=== PATIENT | female | born 1955 | race Caucasian/White ===

== ENCOUNTER → 2017-04-01 | Outpatient (CLI) | payer BC ==
[2017-04-01 11:36] LABS: MEAN PLATELET VOLUME 11.2 FL (7.4-10.4); RED BLOOD COUNT 4.01 10^6/uL (4.35-5.85); RED CELL DISTRIBUTION WIDTH 14.1 % (10.0-14.5); WHITE BLOOD COUNT 8.9 10^3/uL (4.3-11.0)
[2017-04-01 12:02] LABS: ALBUMIN 4.3 GM/DL (3.2-4.5); BILIRUBIN,TOTAL 0.4 MG/DL (0.1-1.0); CALCIUM 10.1 MG/DL (8.5-10.1); CREATININE SERUM 1.07 MG/DL (0.60-1.30); POTASSIUM 4.3 MMOL/L (3.6-5.0); TOTAL PROTEIN 6.8 GM/DL (6.4-8.2)
[2017-04-01 12:25] LABS: THYROID STIMULATING HORMONE 0.51 UIU/ML (0.35-4.94)
--- NOTE | 2017-04-01 16:06 | Diagnostic Imaging Report ---
Two views of the left hip. INDICATION: Left hip pain. FINDINGS: There is no fracture, dislocation or radiopaque foreign body. Mild degenerative subchondral sclerosis is seen in the left hip joint with no joint space loss or other arthritic findings. IMPRESSION: No acute process. Dictated by: Dictated on workstation # [id number]
== END ==
LOC: RAD 10:36
PROVIDERS: ATTEND Nurse Practitioner Family
DX: M25.552 Pain in left hip (principal)
CPT/HCPCS: 36415; 73502; 80053; 80061; 84439; 84443; 85027

== ENCOUNTER 2018-11-05 11:15 | Outpatient (CLI) | payer BC ==
[~2018-11-05] VITALS: Ht 166.4 cm; Wt 111.1 kg
[~2018-11-05 11:15] MED LIST: ACET-2469 PO; ASPI-586 PO; CALC-823 PO; CHOL20003 PO; ESOM20CA PO; GLUC-144 PO; LEVO88TA54 PO; LISI40TA PO; MELO15TA39 PO; MULT1CAP27 PO; PRAV40TA2 PO; PROP20TA5 PO
== END 2018-11-05 11:47 | disposition home or self-care (01) ==
LOC: PREOP 11:15
PROVIDERS: ATTEND Internal Medicine
DX: Z01.818 Encounter for other preprocedural examination (principal)

== ENCOUNTER 2018-11-12 06:52 | Day surgery (SDC) | payer MEDICARE, OTHER ==
--- NOTE | 2018-11-03 17:43 | HISTORY AND PHYSICAL ---
DATE OF SERVICE: ESOPHAGOGASTRODUODENOSCOPY HISTORY AND PHYSICAL HISTORY OF PRESENT ILLNESS: The patient is a 63-year-old white female referred by Dr. Quispe for EGD evaluation. She has a past history of erosive esophagitis, and in spite b.i.d. proton pump inhibitor therapy has had increased antacid usage several times per day for burning epigastric discomfort. She admits to at least a 10-pound weight gain over the last year. Denies dysphagia, melena, bright red blood per rectum or bowel habit change. She has some occasional odynophagia. PAST MEDICAL HISTORY: Significant for longstanding hypertension, mixed hyperlipidemia, hypothyroidism, fibromyalgia. FAMILY HISTORY: She is not aware of any family history for GI tract malignancy. MEDICATIONS ON ADMISSION: Include L-thyroxine 88 mcg daily, Nexium 20 mg b.i.d., calcium with D 600 mg/400 units daily, Osteo Bi-Flex 1 daily, multiple vitamin daily, vitamin D3 1000 units daily, Tylenol PM one at bedtime, pravastatin 40 mg daily, propranolol 20 mg daily, meloxicam 7.5 mg daily and lisinopril 40 mg daily. SOCIAL HISTORY: The patient is , retired. One living child with no past smoking or alcohol intake history. PHYSICAL EXAMINATION: GENERAL: Reveals a pleasant white female appears to be in no acute distress. She is roughly 5 feet 6 inches tall and weighs 246.8 pounds. VITAL SIGNS: Blood pressure 146/94, heart rate 70 and regular. HEENT: Unremarkable. She is a Mallampati class 3 oropharyngeal configuration. No erythema or exudate or ulceration noted. NECK: Revealed no JVD, adenopathy or bruits. CHEST: Clear to auscultation. CARDIOVASCULAR: Reveals a regular rate and rhythm without murmur, S3 or S4. ABDOMEN: Soft, supple without mass, organomegaly or tenderness. EXTREMITIES: Reveal no cyanosis or clubbing with trace bilateral edema. ASSESSMENT: The patient was set up for diagnostic EGD due to reflux refractory to proton pump inhibitor therapy. She was advised to abstain from aspirin and was set up for EGD evaluation on 11/12/2018. Instructions were given and questions were answered. I thank you for the referral of this pleasant lady. Job ID: [id number] DocumentID: [id number] Dictated Date: 11/02/2018 16:36:52 Ged Tutor Date: 11/02/2018 17:02:27 Dictated By: VICKY NICOLAS MD
[~2018-11-12] VITALS: Ht 166.4 cm; Wt 111.1 kg
--- OUTSIDE RECORDS SUMMARY | 2018-11-12 06:56 | XMS REPORT | Clinical Summary ---
Author Author [facility] Organization [facility] Address Unknown Phone Unavailable Care Team Providers Care Tile Classifier Name Role Phone Unknown, Unknown Md PCP Unavailable Chetan Dumas MD Unavailable Source Comments Some departments are not documenting in the electronic medical record. If you do not see the information that you expected, contact Release of Information in the Health Information Management department at [phone] for further assistance in locating additional records.[facility] Allergies Not on File Medications End Date Status Medication Sig Dispensed Refills Start Date Active gabapentin (NEURONTIN) 300 mg. 0 300 mg capsule 6 Active levothyroxine (SYNTHROID) 88 mcg. 0 88 mcg tablet 6 Active lisinopril (PRINIVIL, 40 mg. 0 ZESTRIL) 40 mg tablet 6 Active meloxicam (MOBIC) 15 mg 15 mg. 0 tablet 6 Active pravastatin (PRAVACHOL) 40 mg. 0 40 mg tablet 6 Active aspirin 81 mg chewable Take 81 mg by 0 tablet mouth daily. Active MULTIVITAMINS WITH Take by 0 FLUORIDE (MULTI-VITAMIN mouth. PO) Active Ibuprofen-Diphenhydramine Take by 0 200-38 mg tab mouth. Active GLUCOSAMINE/D3/BOSWELLIA Take by 0 JOHN (OSTEO BI-FLEX mouth. (5-LOXIN) PO) Active Problems Not on file Social History Date Tobacco Use Types Packs/Day Years Used Quit: 11/14/2004 Former Smoker Alcohol Use Drinks/Week oz/Week Comments No Sex Assigned at Date Recorded Not on file Industry Job Start Date Occupation Not on file Not on file Not on file Travel End Travel History Travel Start No recent travel history available. Last Filed Vital Signs Time Taken Vital Sign Reading 11/15/2015 2:10 PM [employer] Blood Pressure 156/89 11/15/2015 2:10 PM [employer] Pulse 105 - Temperature - - Respiratory Rate - - Oxygen Saturation - - Inhaled Oxygen - Concentration 11/15/2015 2:10 PM [employer]ER Weight 105.7 kg (233 lb) 11/15/2015 2:10 PM [employer] OFFICER Height 172.7 cm (5' 8") 11/15/2015 2:10 PM [employer] OFFICER Body Mass Index 35.43 Plan of Treatment Health Maintenance Due Date Last Done Comments HEPATITIS C SCREENING 1953 PHYSICAL (COMPREHENSIVE) 1960 EXAM HIV SCREENING 1968 DTAP/TDAP VACCINES (1 - 1971 Tdap) BREAST CANCER SCREENING 1993 COLORECTAL CANCER 2003 SCREENING SHINGLES RECOMBINANT 2003 VACCINE (1 of 2) OSTEOPOROSIS 2018 SCREENING/MONITORING PNEUMONIA (PCV13/PPSV23) 2018 VACCINES (1 of 2 - PCV13) INFLUENZA VACCINE 04/07/2019 Results Not on filefrom Last 3 Months Insurance Payer Benefit Subscriber ID Type Phone Address Plan / Group [facility] xxxxxxxxxxxx PPO [facility] BL[facility] Advance Directives Patient has advance care planning documents on file. For more information, please contact: [facility] [address] [place] [address]
[2018-11-12] MEDS ORDERED: D5 LR IV SOLUTION 1,000 ML IV ONE (06:57)
--- OUTSIDE RECORDS SUMMARY | 2018-11-12 06:57 | XMS REPORT ---
Author Author Oly Alcocer [facility] Address [address] [place] [id number] Care Team Providers Care Human Resources Benefits Administrator Name Role Phone Oly Alcocer PCP Unavailable Allergies and Adverse Reactions Name Reaction Notes NO KNOWN DRUG ALLERGIES Plan of Treatment Planned Activity Comments Planned Date Planned Time Plan/Goal MAMMOGRAM SCREENING 09/24/2015 12:00 AM DXA BONE DENSITY AXIAL 09/24/2015 12:00 AM Medications Active Name Start Date Estimated Completion Date SIG Comments multivitamin Oral Tablet take 1 tablet by oral route once daily with food Baby Aspirin 81 mg oral tablet,chewable chew 1 tablet (81 mg) by oral route once daily Calcium 500 + D 500 mg(1,250mg) -200 unit oral tablet take 1 tablet by oral route daily advil PM Osteo biflex gabapentin 300 mg oral capsule 03/05/2015 take 1 capsule (300 mg) by oral route 3 times per day gabapentin 300 mg oral capsule 08/24/2015 02/20/2016 TAKE ONE CAPSULE BY MOUTH THREE TIMES DAILY for 90 days levothyroxine 88 mcg oral tablet 08/24/2015 02/20/2016 TAKE ONE TABLET BY MOUTH EVERY DAY lisinopril 40 mg oral tablet 08/24/2015 02/20/2016 TAKE ONE TABLET BY MOUTH EVERY DAY meloxicam 15 mg oral tablet 08/24/2015 02/20/2016 TAKE ONE-HALF TO ONE TABLET BY MOUTH EVERY DAY Nexium 40 mg oral capsule,delayed release(DR/EC) 08/24/2015 take 1 capsule (40 mg) by oral route once daily pravastatin 40 mg oral tablet 08/24/2015 02/20/2016 TAKE ONE TABLET BY MOUTH EVERY DAY Name Start Date Expiration Date SIG Comments Nexium 40 mg oral capsule,delayed release(DR/EC) 08/24/2009 08/19/2010 take 1 capsule by oral route daily for 30 days phentermine 37.5 mg oral capsule 11/29/2009 12/29/2009 take 1 capsule (37.5 mg ) by oral route once daily before breakfast for 30 days Bactrim DS 800-160 mg oral tablet 12/18/2009 12/25/2009 take 1 tablet by oral route 2 times per day for 7 days Zithromax Z-Michael 250 mg oral tablet 10/28/2010 11/02/2010 Take 2 tablets the first day (500 mg) followed by 1 tablet (250 mg) days 2-5. for 5 days Bactrim DS 800-160 mg oral tablet 03/27/2014 04/06/2014 take 1 tablet by oral route every 12 hours for 10 days Bactroban 2 % topical ointment 03/27/2014 04/06/2014 apply a small amount to the affected area by topical route 2 times per day for 10 days Bactrim DS 800-160 mg oral tablet 01/12/2015 01/22/2015 take 1 tablet by oral route every 12 hours for 10 days Bactroban 2 % topical ointment 01/12/2015 01/22/2015 apply a small amount to the affected area by topical route 2 times per day for 10 days Discontinued Name Start Date Discontinued Date SIG Comments Vitamin D2 400 unit oral capsule 08/03/2012 take 2 capsules by oral route daily lisinopril-hydrochlorothiazide 10-12.5 mg oral tablet 08/24/2009 take 1 tablet by oral route once daily Prilosec OTC 20 mg oral tablet,delayed release (DR/EC) 08/24/2009 take 1 tablet by oral route daily Mobic 15 mg oral tablet 07/05/2010 11/12/2010 take 1/2-1 tablet by oral route QD levothyroxine 88 mcg oral tablet 07/08/2010 01/09/2011 take 1 tablet (88 mcg) by oral route once daily Celebrex 200 mg oral capsule 11/12/2010 01/09/2011 take 1 capsule (200 mg) by oral route once daily Dexilant 60 mg oral capsule,biphase delayed releas 11/12/2010 03/16/2012 take 1 capsule (60 mg) by oral route once daily prednisone 20 mg oral tablet 12/11/2010 01/09/2011 take 3 tabs x 3 days, 2 tabs x 3 days, 1 tab x 3 days then 1/2 tab for 4 days. omeprazole 20 mg oral capsule,delayed release(DR/EC) 10/13/2013 take 1 capsule (20 mg) by oral route 2 times per day estradiol 1 mg oral tablet 07/17/2011 01/10/2014 take 1 tablet (1 mg) by oral route once daily promethazine-codeine 6.25-10 mg/5 mL oral syrup 08/09/2012 09/30/2012 take 5 milliliters by oral route every 4-6 hours as needed, not to exceed 30 mL in 24 hours albuterol sulfate 90 mcg/actuation inhalation HFA aerosol inhaler 08/09/2012 inhale 1 - 2 puffs by inhalation route every 6 hours as needed Cymbalta 60 mg oral capsule,delayed release(DR/EC) 06/07/2013 07/18/2013 take 1 capsule (60 mg) by oral route once daily for 30 days per insurance needs to try other medication first Nexium 40 mg oral capsule,delayed release(DR/EC) 09/13/2013 09/14/2013 take 1 capsule by oral route daily Protonix 40 mg oral tablet,delayed release (DR/EC) 09/14/2013 10/13/2013 take 1 tablet (40 mg) by oral route once daily for 30 days Nexium 40 mg oral capsule,delayed release(DR/EC) 10/13/2013 01/10/2014 take 1 capsule (40 mg) by oral route once daily for 30 days Prevacid 30 mg oral capsule,delayed release(DR/EC) 11/23/2013 01/10/2014 take 1 capsule (30 mg) by oral route once daily before a meal for 30 days Nexium 40 mg oral capsule,delayed release(DR/EC) 01/10/2014 02/27/2014 take 1 capsule (40 mg) by oral route once daily Dexilant 60 mg oral capsule,biphase delayed releas 02/27/2014 05/26/2014 take 1 capsule (60 mg) by oral route once daily rabeprazole 20 mg oral tablet,delayed release (DR/EC) 03/24/2014 take 1 tablet (20 mg) by oral route once daily swallowing whole. Do not crush, chew and /or divide. per patient she is back on nexium gabapentin 300 mg oral capsule 08/17/2014 08/17/2014 TAKE ONE CAPSULE BY MOUTH THREE TIMES DAILY Problem List Description Status Onset Overactive bladder Active 07/07/2010 Vital Signs Date Time BP-Sys(mm[Hg] BP-Bhavani(mm[Hg]) HR(bpm) RR(rpm) Temp WT HT HC BMI BSA BMI Percentile O2 Sat(%) 09/24/2015 8:22:00 AM 137 mmHg 83 mmHg 80 bpm 20 rpm 97.8 F 238.4 lbs 96 % 08/24/2015 1:14:00 PM 115 mmHg 72 mmHg 75 bpm 20 rpm 98.2 F 237.6 lbs 95 % 03/05/2015 9:05:00 AM 110 mmHg 80 mmHg 72 bpm 20 rpm 97.8 F 234 lbs 68 in 35.5792 kg/m 2.26 m2 96 % 01/12/2015 1:32:00 PM 110 mmHg 78 mmHg 101 bpm 18 rpm 97.9 F 234 lbs 68 in 35.58 kg/m2 2.2566 m 97 % 10/11/2014 1:28:00 PM 110 mmHg 68 mmHg 98 bpm 18 rpm 97.2 F 232.2 lbs 68 in 35.3055 kg/m 2.25 m2 97 % 08/17/2014 2:34:00 PM 144 mmHg 72 mmHg 78 bpm 16 rpm 98.5 F 238 lbs 68 in 36.19 kg/m2 2.2758 m 95 % 05/26/2014 1:34:00 PM 100 mmHg 64 mmHg 91 bpm 20 rpm 97.2 F 236 lbs 68 in 35.8833 kg/m 2.27 m2 94 % 03/27/2014 2:13:00 PM 102 mmHg 64 mmHg 91 bpm 20 rpm 97.2 F 233.8 lbs 68 in 35.55 kg/m2 2.2557 m 96 % 02/27/2014 8:21:00 AM 118 mmHg 76 mmHg 76 bpm 20 rpm 97 F 232 lbs 68 in 35.2751 kg/m 2.25 m2 96 % 01/10/2014 1:54:00 PM 100 mmHg 62 mmHg 75 bpm 20 rpm 97.4 F 232 lbs 68 in 35.28 kg/m2 2.25 m2 96 % 09/13/2013 9:11:00 AM 136 mmHg 72 mmHg 81 bpm 18 rpm 96.2 F 234.25 lbs 68 in 35.6172 kg/m 2.2578 m 98 % 08/11/2013 3:41:00 PM 110 mmHg 86 mmHg 85 bpm 16 rpm 96 F 230 lbs 96 % 05/12/2013 3:38:00 PM 105 mmHg 60 mmHg 82 bpm 20 rpm 97.4 F 224.2 lbs 68 in 34.0891 kg/m 2.2089 m 96 % 09/30/2012 8:32:00 AM 108 mmHg 62 mmHg 100 bpm 20 rpm 95.7 F 222.2 lbs 68 in 33.79 kg/m2 2.20 m2 97 % 08/09/2012 10:35:00 AM 102 mmHg 68 mmHg 88 bpm 20 rpm 222.2 lbs 68 in 33.785 kg/m 2.199 m 99 % 08/03/2012 2:47:00 PM 109 mmHg 72 mmHg 88 bpm 18 rpm 226.4 lbs 68 in 34.42 kg/m2 2.22 m2 98 % 03/16/2012 10:01:00 AM 110 mmHg 66 mmHg 77 bpm 16 rpm 96.9 F 218.125 lbs 97 % 07/17/2011 3:40:00 PM 110 mmHg 68 mmHg 95 bpm 16 rpm 97.5 F 228.5 lbs 68 in 34.74 kg/m2 2.23 m2 96 % 05/13/2011 10:51:00 AM 114 mmHg 68 mmHg 88 bpm 16 rpm 97.4 F 227.375 lbs 100 % 04/22/2011 9:17:00 AM 106 mmHg 70 mmHg 92 bpm 16 rpm 96.3 F 224.125 lbs 68 in 34.08 kg/m2 2.21 m2 97 % 12/11/2010 1:06:00 PM 124 mmHg 86 mmHg 87 bpm 16 rpm 97.6 F 219 lbs 97 % 11/12/2010 3:55:00 PM 120 mmHg 80 mmHg 77 bpm 16 rpm 98.2 F 220 lbs 98 % 10/28/2010 1:07:00 PM 94 bpm 16 rpm 98.9 F 216 lbs 95 % 07/05/2010 8:54:00 AM 125 mmHg 75 mmHg 86 bpm 96.4 F 215.125 lbs 01/01/2010 11:08:00 AM 113 mmHg 75 mmHg 91 bpm 97.9 F 205 lbs 12/26/2009 8:29:00 AM 100 mmHg 60 mmHg 100 bpm 18 rpm 95.8 F 12/18/2009 9:27:00 AM 108 mmHg 72 mmHg 80 bpm 16 rpm 96.8 F 203.5 lbs 11/29/2009 8:35:00 AM 100 mmHg 60 mmHg 80 bpm 16 rpm 96.3 F 206.25 lbs 11/01/2009 8:41:00 AM 122 mmHg 80 mmHg 90 bpm 16 rpm 97.3 F 210 lbs 10/01/2009 3:35:00 PM 144 mmHg 72 mmHg 80 bpm 16 rpm 97.4 F 219.375 lbs 68 in 33.3555 kg/m 2.185 m 08/24/2009 8:09:00 AM 138 mmHg 80 mmHg 80 bpm 20 rpm 96.2 F 220.25 lbs 68 in 33.49 kg/m2 2.19 m2 08/01/2009 4:28:00 PM 136 mmHg 90 mmHg 60 bpm 18 rpm 219 lbs 07/05/2009 4:28:00 PM 140 mmHg 80 mmHg 80 bpm 18 rpm 97.4 F 217 lbs 68 in 32.99 kg/m2 2.17 m2 Social History Name Description Comments Grown Children x1 Lives with spouse in a house College graduate bachelors degree BS [employer] Former smoker Former quit 2005 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 Alcohol Use - Occasional Minimal Amount of Exercise (Once weekly or less) History of Procedures Date Ordered Description Order Status 05/13/2011 12:00 AM X-RAY EXAM OF ELBOW Reviewed 05/13/2011 12:00 AM X-RAY EXAM OF FOREARM Reviewed 05/13/2011 12:00 AM Arm Sling Reviewed 08/24/2015 12:00 AM COMPREHEN METABOLIC PANEL Returned 08/24/2015 12:00 AM LIPID PANEL Returned 08/24/2015 12:00 AM ASSAY THYROID STIM HORMONE Returned 08/24/2015 12:00 AM VIT D 1 25-DIHYDROXY Returned 08/24/2015 12:00 AM COMPLETE CBC W/AUTO DIFF WBC Returned 08/24/2015 12:00 AM MAMMOGRAM SCREENING Reviewed 03/16/2012 12:00 AM COMPREHEN METABOLIC PANEL Returned 03/16/2012 12:00 AM LIPID PANEL Returned 03/16/2012 12:00 AM ASSAY THYROID STIM HORMONE Returned 03/16/2012 12:00 AM COMPLETE CBC W/AUTO DIFF WBC Returned 08/09/2012 12:00 AM THER/PROPH/DIAG INJ SC/IM Reviewed 08/09/2012 12:00 AM Decadron, Per 1 Mg [facility]# [address]-04 Reviewed 08/09/2012 12:00 AM Depo-Medrol, Per 80 Mg [facility]#5812-0696-58 Reviewed 09/30/2012 12:00 AM COMPLETE CBC W/AUTO DIFF WBC Returned 09/30/2012 12:00 AM COMPREHEN METABOLIC PANEL Returned 09/30/2012 12:00 AM LIPID PANEL Returned 09/30/2012 12:00 AM ASSAY THYROID STIM HORMONE Returned 09/30/2012 12:00 AM VITAMIN D 25 HYDROXY Returned 09/30/2012 12:00 AM VITAMIN B-12 Returned 12/18/2009 12:00 AM URINALYSIS NONAUTO W/SCOPE Reviewed 12/24/2009 12:00 AM URINALYSIS AUTO W/SCOPE Reviewed 12/24/2009 12:00 AM HEPATIC FUNCTION PANEL Reviewed 01/08/2010 12:00 AM LIPID PANEL Reviewed 08/11/2013 12:00 AM COMPREHEN METABOLIC PANEL Returned 08/11/2013 12:00 AM LIPID PANEL Returned 08/11/2013 12:00 AM ASSAY THYROID STIM HORMONE Returned 08/11/2013 12:00 AM COMPLETE CBC W/AUTO DIFF WBC Returned 08/29/2013 12:00 AM MAMMOGRAM SCREENING Returned 07/05/2010 12:00 AM COMPREHEN METABOLIC PANEL Reviewed 07/05/2010 12:00 AM LIPID PANEL Reviewed 07/05/2010 12:00 AM ASSAY THYROID STIM HORMONE Reviewed 07/05/2010 12:00 AM VIT D 1 25-DIHYDROXY Reviewed 02/27/2014 12:00 AM COMPREHEN METABOLIC PANEL Returned 02/27/2014 12:00 AM LIPID PANEL Returned 02/27/2014 12:00 AM ASSAY THYROID STIM HORMONE Returned 02/27/2014 12:00 AM COMPLETE CBC W/AUTO DIFF WBC Returned 03/27/2014 12:00 AM CULTURE OTHR SPECIMN AEROBIC Returned 03/27/2014 12:00 AM DRAINAGE OF SKIN ABSCESS Reviewed 05/26/2014 12:00 AM Gastroenterology Consult Reviewed 11/12/2010 12:00 AM COMPREHEN METABOLIC PANEL Reviewed 11/12/2010 12:00 AM LIPID PANEL Reviewed 11/12/2010 12:00 AM ASSAY THYROID STIM HORMONE Reviewed 11/12/2010 12:00 AM VIT D 1 25-DIHYDROXY Reviewed 08/17/2014 12:00 AM COMPREHEN METABOLIC PANEL Returned 08/17/2014 12:00 AM LIPID PANEL Returned 08/17/2014 12:00 AM ASSAY THYROID STIM HORMONE Returned 08/17/2014 12:00 AM COMPLETE CBC W/AUTO DIFF WBC Returned 08/17/2014 12:00 AM X-RAY EXAM OF FOOT Returned 10/01/2009 12:00 AM ASSAY THYROID STIM HORMONE Reviewed 10/11/2014 12:00 AM MAMMOGRAM SCREENING Returned 01/15/2011 12:00 AM MUSCLE TEST ONE LIMB Reviewed 01/15/2011 12:00 AM NERVE CONDUCTION, MOTOR Reviewed 01/15/2011 12:00 AM NERVE CONDUCTION, SENSORY Reviewed 01/12/2015 12:00 AM CULTURE OTHR SPECIMN AEROBIC Returned 01/12/2015 12:00 AM DRAINAGE OF SKIN ABSCESS Reviewed 03/05/2015 12:00 AM COMPREHEN METABOLIC PANEL Returned 03/05/2015 12:00 AM LIPID PANEL Returned 03/05/2015 12:00 AM ASSAY THYROID STIM HORMONE Returned 03/05/2015 12:00 AM COMPLETE CBC W/AUTO DIFF WBC Returned 03/05/2015 12:00 AM X-RAY EXAM OF HIP Returned 04/22/2011 12:00 AM COMPREHEN METABOLIC PANEL Reviewed 04/22/2011 12:00 AM LIPID PANEL Reviewed 04/22/2011 12:00 AM ASSAY THYROID STIM HORMONE Reviewed 04/22/2011 12:00 AM COMPLETE CBC W/AUTO DIFF WBC Reviewed 04/22/2011 12:00 AM VIT D 1 25-DIHYDROXY Reviewed 04/22/2011 12:00 AM IMMUNIZATION ADMIN Reviewed 04/22/2011 12:00 AM TD VACCINE NO PRSRV 7/> IM Reviewed Results Summary Data and Description Results 12/18/2009 9:29 AM Colonoscopy-Women and Men over 50 Normal Mammogram -Women over 40 Normal Pap Smear Declined 12/18/2009 10:01 AM COLOR MARIANA APPEARANCE CLEAR SPEC GRAV >=1.030 pH 5.5 PROTEIN 100 GLUCOSE NEGATIVE KETONE 15 BILIRUBIN SMALL BLOOD NEGATIVE NITRITE NEGATIVE LEUK SCREEN NEGATIVE CASTS/LPF 2++ HYALINE CRYSTALS 1+ CALCIUM OX MUCOUS THRDS 1+ BACTERIA NEGATIVE EPITH CELLS 1+ SQUAMOUS TRICHOMONAS NEGATIVE YEAST NEGATIVE 12/24/2009 1:47 PM COLOR YELLOW APPEARANCE CLEAR SPEC GRAV <=1.005 pH 6.0 PROTEIN NEGATIVE GLUCOSE NEGATIVE KETONE NEGATIVE BILIRUBIN NEGATIVE BLOOD NEGATIVE NITRITE NEGATIVE LEUK SCREEN NEGATIVE CASTS/LPF NEGATIVE CRYSTALS NEGATIVE MUCOUS THRDS NEGATIVE BACTERIA NEGATIVE EPITH CELLS NEGATIVE TRICHOMONAS NEGATIVE YEAST NEGATIVE SGOT/AST 15.0 IU/LSGPT/ALT 14.0 IU/LALK PHOS 72.0 IU/LTOTAL PROTEIN 7.20 g/dLALBUMIN 4.80 g/dLTOTAL BILI 0.40 mg/ dLDIRECT BILI 0.20 mg/dLINDIRECT BILI 0.20 mg/dL 01/09/2010 6:00 AM TRIGLYCERIDES 64.0 mg/dLCHOLESTEROL 198.0 mg/dLHDL 52.0 mg/ dLLDL (CALC) 133.0 mg/dLTSH 0.590 uIU/mL 07/05/2010 10:10 AM TRIGLYCERIDES 73.0 mg/dLCHOLESTEROL 207.0 mg/dLHDL 64.0 mg /dLLDL (CALC) 128.0 mg/dLTSH 0.150 uIU/mLGLUCOSE 99.0 mg/dLSODIUM 142.0 mmol/ LPOTASSIUM 4.30 mmol/LCHLORIDE 109.0 mmol/LCO2 25.0 mmol/LBUN 19.0 mg/ dLCREATININE 0.90 mg/dLSGOT/AST 13.0 IU/LSGPT/ALT 13.0 IU/LALK PHOS 76.0 IU/ LTOTAL PROTEIN 7.0 g/dLALBUMIN 4.30 g/dLTOTAL BILI 0.30 mg/dLCALCIUM 9.60 mg/ dLeGFR >60 mL/min/1.73 m2 11/15/2010 5:35 AM TSH 1.240 uIU/mLTRIGLYCERIDES 80.0 mg/dLCHOLESTEROL 215.0 mg /dLHDL 57.0 mg/dLLDL (CALC) 142.0 mg/dLGLUCOSE 98.0 mg/dLSODIUM 141.0 mmol/ LPOTASSIUM 4.40 mmol/LCHLORIDE 109.0 mmol/LCO2 23.0 mmol/LBUN 23.0 mg/ dLCREATININE 1.0 mg/dLSGOT/AST 15.0 IU/LSGPT/ALT 13.0 IU/LALK PHOS 70.0 IU/ LTOTAL PROTEIN 6.40 g/dLALBUMIN 3.90 g/dLTOTAL BILI 0.30 mg/dLCALCIUM 10.10 mg/ dLeGFR 57 04/22/2011 9:52 AM WBC 5.1 RBC 3.83 HGB 12.10 g/dLHCT 36.0 %MCV 94.0 fLMCH 31.60 pgMCHC 33.60 g/dLRDW CV 13.30 %MPV 11.20 fLPLT 160 %NEUT 62.90 %%LYMP 21.20 %%MONO 11.30 %%EOS 3.60 %%BASO 1.0 %#NEUT 3.18 #LYMP 1.07 #MONO 0.57 #EOS 0.18 #BASO 0.05 GLUCOSE 97.0 mg/dLSODIUM 142.0 mmol/LPOTASSIUM 4.40 mmol/ LCHLORIDE 107.0 mmol/LCO2 25.0 mmol/LBUN 22.0 mg/dLCREATININE 1.10 mg/dLSGOT/ AST 13.0 IU/LSGPT/ALT 12.0 IU/LALK PHOS 77.0 IU/LTOTAL PROTEIN 7.0 g/dLALBUMIN 4.30 g/dLTOTAL BILI 0.30 mg/dLCALCIUM 10.10 mg/dLeGFR 51 TRIGLYCERIDES 96.0 mg/ dLCHOLESTEROL 192.0 mg/dLHDL 60.0 mg/dLLDL (CALC) 113.0 mg/dLTSH 0.720 uIU/mL 04/08/2012 5:20 AM WBC 5.5 RBC 4.06 HGB 12.70 g/dLHCT 37.70 %MCV 93.0 fLMCH 31.30 pgMCHC 33.70 g/dLRDW CV 13.60 %MPV 11.20 fLPLT 172 %NEUT 53.50 %%LYMP 34.90 %%MONO 8.0 %%EOS 3.10 %%BASO 0.50 %#NEUT 2.96 #LYMP 1.93 #MONO 0.44 #EOS 0.17 #BASO 0.03 GLUCOSE 103.0 mg/dLSODIUM 139.0 mmol/LPOTASSIUM 4.20 mmol/ LCHLORIDE 108.0 mmol/LCO2 22.0 mmol/LBUN 26.0 mg/dLCREATININE 1.10 mg/dLSGOT/ AST 15.0 IU/LSGPT/ALT 15.0 IU/LALK PHOS 79.0 IU/LTOTAL PROTEIN 6.30 g/dLALBUMIN 4.10 g/dLTOTAL BILI 0.40 mg/dLCALCIUM 9.90 mg/dLeGFR 51 TRIGLYCERIDES 73.0 mg/ dLCHOLESTEROL 203.0 mg/dLHDL 65.0 mg/dLLDL (CALC) 123.0 mg/dLTSH 0.810 uIU/mL 10/01/2012 5:30 AM WBC 5.5 RBC 3.69 HGB 11.40 g/dLHCT 34.20 %MCV 93.0 fLMCH 30.90 pgMCHC 33.30 g/dLRDW CV 13.40 %MPV 12.10 fLPLT 162 %NEUT 46.70 %%LYMP 40.0 %%MONO 8.90 %%EOS 3.30 %%BASO 1.10 %#NEUT 2.57 #LYMP 2.20 #MONO 0.49 #EOS 0.18 #BASO 0.06 VITAMIN B12 641.0 pg/mLTSH 1.0 uIU/mLTRIGLYCERIDES 93.0 mg/ dLCHOLESTEROL 182.0 mg/dLHDL 55.0 mg/dLLDL (CALC) 108.0 mg/dLGLUCOSE 104.0 mg/ dLSODIUM 141.0 mmol/LPOTASSIUM 4.40 mmol/LCHLORIDE 111.0 mmol/LCO2 19.0 mmol/ LBUN 44.0 mg/dLCREATININE 1.50 mg/dLSGOT/AST 15.0 IU/LSGPT/ALT 16.0 IU/LALK PHOS 57.0 IU/LTOTAL PROTEIN 6.40 g/dLALBUMIN 3.90 g/dLTOTAL BILI 0.40 mg/ dLCALCIUM 10.30 mg/dLeGFR 36 VITAMIN D 36.10 ng/mL 08/12/2013 5:30 AM WBC 5.5 RBC 4.00 HGB 11.90 g/dLHCT 37.30 %MCV 93.0 fLMCH 29.80 pgMCHC 31.90 g/dLRDW CV 13.90 %MPV 10.50 fLPLT 224 %NEUT 50.50 %%LYMP 36.10 %%MONO 8.20 %%EOS 4.70 %%BASO 0.50 %#NEUT 2.78 #LYMP 1.99 #MONO 0.45 #EOS 0.26 #BASO 0.03 GLUCOSE 106.0 mg/dLSODIUM 141.0 mmol/LPOTASSIUM 4.40 mmol/ LCHLORIDE 110.0 mmol/LCO2 21.0 mmol/LBUN 34.0 mg/dLCREATININE 1.20 mg/dLSGOT/ AST 21.0 IU/LSGPT/ALT 29.0 IU/LALK PHOS 101.0 IU/LTOTAL PROTEIN 6.60 g/ dLALBUMIN 4.30 g/dLTOTAL BILI 0.30 mg/dLCALCIUM 9.90 mg/dLeGFR 46 TRIGLYCERIDES 82.0 mg/dLCHOLESTEROL 209.0 mg/dLHDL 62.0 mg/dLLDL (CALC) 131.0 mg/dLTSH 0.90 uIU/mL 03/01/2014 9:06 AM GLUCOSE 92.0 mg/dLSODIUM 142.0 mmol/LPOTASSIUM 4.70 mmol/ LCHLORIDE 107.0 mmol/LCO2 26.0 mmol/LBUN 19.0 mg/dLCREATININE 1.10 mg/dLSGOT/ AST 15.0 IU/LSGPT/ALT 16.0 IU/LALK PHOS 83.0 IU/LTOTAL PROTEIN 7.10 g/dLALBUMIN 4.20 g/dLTOTAL BILI 0.40 mg/dLCALCIUM 9.60 mg/dLeGFR 51 TRIGLYCERIDES 92.0 mg/ dLCHOLESTEROL 209.0 mg/dLHDL 65.0 mg/dLLDL (CALC) 126.0 mg/dLWBC 5.2 RBC 4.09 HGB 12.50 g/dLHCT 37.20 %MCV 91.0 fLMCH 30.60 pgMCHC 33.60 g/dLRDW CV 13.50 % MPV 11.50 fLPLT 169 %NEUT 66.30 %%LYMP 25.0 %%MONO 5.60 %%EOS 2.70 %%BASO 0.40 % #NEUT 3.45 #LYMP 1.30 #MONO 0.29 #EOS 0.14 #BASO 0.02 TSH 0.650 uIU/mL 08/18/2014 5:05 AM TSH 0.420 uIU/mLTRIGLYCERIDES 67.0 mg/dLCHOLESTEROL 167.0 mg/dLHDL 57.0 mg/dLLDL (CALC) 97.0 mg/dLWBC 4.9 RBC 3.92 HGB 12.0 g/dLHCT 37.50 %MCV 96.0 fLMCH 30.60 pgMCHC 32.0 g/dLRDW CV 13.30 %MPV 10.60 fLPLT 170 %NEUT 50.90 %%LYMP 36.0 %%MONO 9.0 %%EOS 3.30 %%BASO 0.80 %#NEUT 2.49 #LYMP 1.76 # MONO 0.44 #EOS 0.16 #BASO 0.04 GLUCOSE 104.0 mg/dLSODIUM 143.0 mmol/LPOTASSIUM 4.20 mmol/LCHLORIDE 109.0 mmol/LCO2 24.0 mmol/LBUN 22.0 mg/dLCREATININE 1.10 mg/ dLSGOT/AST 16.0 IU/LSGPT/ALT 17.0 IU/LALK PHOS 75.0 IU/LTOTAL PROTEIN 6.70 g/ dLALBUMIN 4.0 g/dLTOTAL BILI 0.30 mg/dLCALCIUM 9.70 mg/dLeGFR 50 03/06/2015 7:05 AM WBC 4.5 RBC 3.90 HGB 12.30 g/dLHCT 37.10 %MCV 95.0 fLMCH 31.50 pgMCHC 33.20 g/dLRDW CV 14.0 %MPV 11.0 fLPLT 182 %NEUT 50.40 %%LYMP 37.10 %%MONO 8.50 %%EOS 3.30 %%BASO 0.70 %#NEUT 2.26 #LYMP 1.66 #MONO 0.38 #EOS 0.15 # BASO 0.03 TRIGLYCERIDES 114.0 mg/dLCHOLESTEROL 215.0 mg/dLHDL 61.0 mg/dLLDL ( CALC) 131.0 mg/dLGLUCOSE 98.0 mg/dLSODIUM 143.0 mmol/LPOTASSIUM 4.40 mmol/ LCHLORIDE 108.0 mmol/LCO2 23.0 mmol/LBUN 22.0 mg/dLCREATININE 1.10 mg/dLSGOT/ AST 17.0 IU/LSGPT/ALT 10.0 IU/LALK PHOS 69.0 IU/LTOTAL PROTEIN 6.90 g/dLALBUMIN 4.30 g/dLTOTAL BILI 0.60 mg/dLCALCIUM 10.20 mg/dLeGFR 50 TSH 1.180 uIU/mL 09/17/2015 7:15 AM WBC 5.1 RBC 4.02 HGB 12.40 g/dLHCT 38.50 %MCV 96.0 fLMCH 30.80 pgMCHC 32.20 g/dLRDW CV 13.80 %MPV 10.90 fLPLT 173 %NEUT 54.50 %%LYMP 32.50 %%MONO 8.30 %%EOS 3.90 %%BASO 0.80 %#NEUT 2.76 #LYMP 1.65 #MONO 0.42 #EOS 0.20 #BASO 0.04 VITAMIN D 42.80 ng/mLGLUCOSE 102.0 mg/dLSODIUM 145.0 mmol/ LPOTASSIUM 4.20 mmol/LCHLORIDE 113.0 mmol/LCO2 22.0 mmol/LBUN 18.0 mg/ dLCREATININE 1.10 mg/dLSGOT/AST 17.0 IU/LSGPT/ALT 15.0 IU/LALK PHOS 86.0 IU/ LTOTAL PROTEIN 6.40 g/dLALBUMIN 4.20 g/dLTOTAL BILI 0.30 mg/dLCALCIUM 9.60 mg/ dLeGFR 50 TRIGLYCERIDES 98.0 mg/dLCHOLESTEROL 189.0 mg/dLHDL 60.0 mg/dLLDL (CALC ) 109.0 mg/dLTSH 1.180 uIU/mL History Of Immunizations Name Date Admin Mfg Name Mfg Code Trade Name Lot# Route Inj Vis Given Vis Pub CVX Td 04/22/2011 sanofi pasteur PMC ADACEL [id number] Intramuscular Left Deltoid 04/22/2011 04/14/2008 113 History of Past Illness Name Date of Onset Comments Essential Hypertension Aug 24 2009 8:15AM Dizziness Aug 24 2009 8:15AM Breast Pain/Mastodynia Aug 24 2009 8:15AM Hiatal Hernia Hypertension Hyperlipidemia Vitamin D deficiency Hypothyroidism, Acquired Oct 01 2009 3:37PM Essential Hypertension Oct 01 2009 3:37PM Obesity Oct 01 2009 3:37PM Essential Hypertension Nov 01 2009 8:44AM Hypothyroidism, Acquired Nov 01 2009 8:44AM Obesity Nov 01 2009 8:44AM Essential Hypertension Nov 29 2009 8:37AM Hypothyroidism, Acquired Nov 29 2009 8:37AM Obesity Nov 29 2009 8:37AM Overactive bladder 07/07/2010 Dysuria Dec 18 2009 9:30AM Dysuria Dec 24 2009 12:01PM Urine Examination Abnormality Dec 24 2009 12:01PM Essential Hypertension Dec 26 2009 8:31AM Hypothyroidism, Acquired Dec 26 2009 8:31AM Incompetence or weakening of rectovaginal tissue Dec 26 2009 8:31AM Pap Smear Dec 26 2009 8:31AM Hypothyroidism Incomplete Bladder Emptying Jan 01 2010 11:12AM Hyperlipidemia Jan 08 2010 3:24PM Essential Hypertension Jul 05 2010 8:59AM Hyperlipidemia Jul 05 2010 8:59AM Hypothyroidism, Acquired Jul 05 2010 8:59AM Vitamin D Deficiency Jul 05 2010 8:59AM Overactive bladder Jul 05 2010 8:59AM Bronchitis, Acute Oct 28 2010 1:11PM Essential Hypertension Nov 12 2010 3:56PM Hyperlipidemia Nov 12 2010 3:56PM Hypothyroidism, Acquired Nov 12 2010 3:56PM Vitamin D Deficiency Nov 12 2010 3:56PM Overactive bladder Nov 12 2010 3:56PM Gastroesophageal Reflux Nov 12 2010 3:56PM Osteoarthrosis Nov 12 2010 3:56PM Essential Hypertension Dec 11 2010 1:08PM Hyperlipidemia Dec 11 2010 1:08PM Gastroesophageal Reflux Dec 11 2010 1:08PM Hypothyroidism, Acquired Dec 11 2010 1:08PM Osteoarthrosis Dec 11 2010 1:08PM Vitamin D Deficiency Dec 11 2010 1:08PM Overactive bladder Dec 11 2010 1:08PM Neck Pain Dec 11 2010 1:08PM Pain in limb Jan 15 2011 10:33AM Skin Sensation Disturbance Jan 15 2011 10:33AM Cervicalgia Jan 15 2011 10:33AM Essential Hypertension Apr 22 2011 9:15AM Hyperlipidemia Apr 22 2011 9:15AM Gastroesophageal Reflux Apr 22 2011 9:15AM Hypothyroidism, Acquired Apr 22 2011 9:15AM Osteoarthrosis Apr 22 2011 9:15AM Vitamin D Deficiency Apr 22 2011 9:15AM Overactive bladder Apr 22 2011 9:15AM Essential Hypertension May 13 2011 10:50AM Hyperlipidemia May 13 2011 10:50AM Gastroesophageal Reflux May 13 2011 10:50AM Hypothyroidism, Acquired May 13 2011 10:50AM Osteoarthrosis May 13 2011 10:50AM Vitamin D Deficiency May 13 2011 10:50AM Overactive bladder May 13 2011 10:50AM Pain in joint; forearm May 13 2011 10:50AM Essential Hypertension Jul 17 2011 3:37PM Hyperlipidemia Jul 17 2011 3:37PM Gastroesophageal Reflux Jul 17 2011 3:37PM Hypothyroidism, Acquired Jul 17 2011 3:37PM Osteoarthrosis Jul 17 2011 3:37PM Vitamin D Deficiency Jul 17 2011 3:37PM Overactive bladder Jul 17 2011 3:37PM Pain in joint; forearm Jul 17 2011 3:37PM Essential Hypertension Mar 16 2012 10:03AM Hyperlipidemia Mar 16 2012 10:03AM Gastroesophageal Reflux Mar 16 2012 10:03AM Hypothyroidism, Acquired Mar 16 2012 10:03AM Osteoarthrosis Mar 16 2012 10:03AM Vitamin D Deficiency Mar 16 2012 10:03AM Overactive bladder Mar 16 2012 10:03AM Gastroesophageal Reflux Aug 03 2012 2:53PM Cough Aug 09 2012 10:38AM Upper Respiratory Infections Aug 09 2012 10:38AM Wheezing Aug 09 2012 10:38AM Shortness Of Breath Aug 09 2012 10:38AM Myalgia Sep 30 2012 8:39AM Fatigue Sep 30 2012 8:39AM Essential Hypertension Sep 30 2012 8:39AM Hyperlipidemia Sep 30 2012 8:39AM Gastroesophageal Reflux Sep 30 2012 8:39AM Hypothyroidism, Acquired Sep 30 2012 8:39AM Vitamin D Deficiency Sep 30 2012 8:39AM Essential Hypertension May 12 2013 3:42PM Hyperlipidemia May 12 2013 3:42PM Gastroesophageal Reflux May 12 2013 3:42PM Hypothyroidism, Acquired May 12 2013 3:42PM Osteoarthrosis May 12 2013 3:42PM Vitamin D Deficiency May 12 2013 3:42PM Overactive bladder May 12 2013 3:42PM Essential Hypertension Aug 11 2013 3:44PM Hyperlipidemia Aug 11 2013 3:44PM Gastroesophageal Reflux Aug 11 2013 3:44PM Hypothyroidism, Acquired Aug 11 2013 3:44PM Osteoarthrosis Aug 11 2013 3:44PM Vitamin D Deficiency Aug 11 2013 3:44PM Overactive bladder Aug 11 2013 3:44PM Screening Mammogram Aug 29 2013 9:35AM Gastroesophageal Reflux Sep 13 2013 9:14AM Essential Hypertension Jan 10 2014 1:58PM Hyperlipidemia Jan 10 2014 1:58PM Gastroesophageal Reflux Jan 10 2014 1:58PM Hypothyroidism, Acquired Jan 10 2014 1:58PM Osteoarthrosis Jan 10 2014 1:58PM Vitamin D Deficiency Jan 10 2014 1:58PM Overactive bladder Jan 10 2014 1:58PM Exercise counseling Feb 27 2014 8:24AM Dietary counseling Feb 27 2014 8:24AM Essential Hypertension Feb 27 2014 8:24AM Hyperlipidemia Feb 27 2014 8:24AM Gastroesophageal Reflux Feb 27 2014 8:24AM Hypothyroidism, Acquired Feb 27 2014 8:24AM Osteoarthrosis Feb 27 2014 8:24AM Vitamin D Deficiency Feb 27 2014 8:24AM Overactive bladder Feb 27 2014 8:24AM Cellulitis and abscess of digit Mar 27 2014 2:16PM Abscess Mar 27 2014 4:36PM Gastroesophageal Reflux May 26 2014 1:37PM Hernia, hiatal May 26 2014 1:37PM Dysphagia May 26 2014 1:37PM Essential Hypertension Aug 17 2014 2:36PM Hyperlipidemia Aug 17 2014 2:36PM Gastroesophageal Reflux Aug 17 2014 2:36PM Hypothyroidism, Acquired Aug 17 2014 2:36PM Osteoarthrosis Aug 17 2014 2:36PM Vitamin D Deficiency Aug 17 2014 2:36PM Overactive bladder Aug 17 2014 2:36PM Foot pain, right Aug 17 2014 2:36PM GERD (gastroesophageal reflux disease) Oct 11 2014 1:31PM Hiatal hernia Oct 11 2014 1:31PM Breast cancer screening Oct 11 2014 1:31PM Abscess, Back Jan 12 2015 1:35PM Abscess Jan 12 2015 3:22PM Essential Hypertension Mar 05 2015 9:06AM Hyperlipidemia Mar 05 2015 9:06AM Gastroesophageal Reflux Mar 05 2015 9:06AM Hypothyroidism, Acquired Mar 05 2015 9:06AM Osteoarthrosis Mar 05 2015 9:06AM Vitamin D Deficiency Mar 05 2015 9:06AM Overactive bladder Mar 05 2015 9:06AM Left hip pain Mar 05 2015 9:06AM Essential Hypertension Aug 24 2015 1:16PM Gastroesophageal Reflux Aug 24 2015 1:16PM Hypothyroidism, Acquired Aug 24 2015 1:16PM Osteoarthrosis Aug 24 2015 1:16PM Vitamin D Deficiency Aug 24 2015 1:16PM Overactive bladder Aug 24 2015 1:16PM Mixed hyperlipidemia Aug 24 2015 1:16PM Breast cancer screening Aug 24 2015 1:16PM Post menopausal syndrome Sep 24 2015 9:04AM Routine gynecological examination Sep 24 2015 8:24AM Screening Examination for Breast Cancer Sep 24 2015 8:24AM Payers Insurance Name Company Name Plan Name Plan Number Policy Number Policy Group Number Start Date [facility] [id number] June History of Encounters Visit Date Visit Type Provider 09/24/2015 Office visit Oly Alcocer [employer]ER 08/24/2015 Office visit Oly Alcocer [employer] CYLINDER PACKING MIXER 03/05/2015 Office visit Oly Alcocer AC[employer]E CYLINDER PACKING MIXER 01/12/2015 Office visit 01/12/2015 Office visit Oly Alcocer AC[employer]E CYLINDER P[employer]ING MIXER 10/11/2014 Office visit Oly Alcocer ACETYLENE CYLINDER PACKING MIXER 08/17/2014 Office visit Oly Alcocer ACET[employer]LENE CYLINDER PACKING MIXER 05/26/2014 Office visit Oly Alcocer ACETYLENE CYLINDER PACKING MIXER 03/27/2014 Office visit Oly Alcocer ACETYLENE CYLINDER PACKING MIXER 02/27/2014 Office visit Oly Alcocer ACETYLENE CYLINDER PACKING MIXER 01/10/2014 Office visit Oly Alcocer ACETYLENE CYLINDER PACKING MIXER 09/13/2013 Office visit Mariana Delacruz ACET[employer]E CYLIND[employer] P[employer]ING MIXER 08/11/2013 Office visit Carlota Cintron MD 05/12/2013 Office visit Oly Alcocer AC[employer] CYLIND[employer] P[employer]ING MIXER 09/30/2012 Office visit Oly Alcocer ACETYLENE CYLINDER PACKING MIXER 08/09/2012 Office visit Oly Alcocer ACETYLENE CYLINDER PACKING MIXER 08/03/2012 Office visit Oly Alcocer ACETYLENE CYLINDER PACKING MIXER 03/16/2012 Office visit Carlota Cintron MD 07/17/2011 Office visit Carlota Cintron MD 05/13/2011 Office visit Carlota Cintron MD 04/22/2011 Office visit Carlota Cintron MD 01/15/2011 Procedures Rolando Nixon MD 12/11/2010 Office visit Carlota Cintron MD 11/12/2010 Office visit Carlota Cintron MD 10/28/2010 Office visit Carlota Cintron MD 07/05/2010 Office visit Carlota Cintron MD 01/01/2010 Office visit Luisa Zelaya MD 12/26/2009 Office visit Carlota Cintron MD 12/18/2009 Office visit Carlota Cintron MD 11/29/2009 Office visit Carlota Cintron MD 11/01/2009 Office visit Carlota Cintron MD 10/01/2009 Office visit Carlota Cintron MD 08/24/2009 Office visit Carlota Cintron MD 08/16/2009 Laboratory Carlota Cintron MD 08/01/2009 Office visit Carlota Cintron MD 07/05/2009 Office visit Carlota Cintron MD 07/05/2009 Laboratory Carlota Cintron MD
--- OUTSIDE RECORDS SUMMARY | 2018-11-12 06:59 | XMS REPORT ---
Author Author Pete Solomon [facility] Address [address] [place], [place] [id number] Care Team Providers Care Research And Development Director Name Role Phone Pete Solomon PCP Unavailable Oly Alcocer PreferredProvider Unavailable Allergies and Adverse Reactions Name Reaction Notes NO KNOWN DRUG ALLERGIES Plan of Treatment Planned Activity Comments Planned Date Planned Time Plan/Goal DEXA 09/24/2015 12:00 AM Medications Active Name Start Date Estimated Completion Date SIG Comments multivitamin Oral Tablet take 1 tablet by oral route once daily with food Baby Aspirin 81 mg oral tablet,chewable chew 1 tablet (81 mg) by oral route once daily Calcium 500 + D 500 mg(1,250mg) -200 unit oral tablet take 1 tablet by oral route daily advil PM gabapentin 300 mg oral capsule 03/05/2015 take 1 capsule (300 mg) by oral route 3 times per day levothyroxine 88 mcg oral tablet 09/09/2016 10/09/2016 TAKE ONE TABLET BY MOUTH EVERY DAY for 30 days gabapentin 300 mg oral capsule 09/09/2016 10/09/2016 take 1 capsule (300 mg) by oral route 3 times per day for 30 days Nexium 40 mg oral capsule,delayed release(DR/EC) take 1 capsule (40 mg) by oral route once daily Name Start Date Expiration Date SIG Comments [...] 2 times per day for 10 days Osteo biflex lisinopril 40 mg oral tablet 03/06/2016 09/02/2016 TAKE ONE TABLET BY MOUTH EVERY DAY meloxicam 15 mg oral tablet 03/06/2016 09/02/2016 TAKE ONE-HALF TO ONE TABLET BY MOUTH EVERY DAY pravastatin 40 mg oral tablet 03/06/2016 09/02/2016 TAKE ONE TABLET BY MOUTH EVERY DAY Protonix 40 mg oral tablet,delayed release (DR/EC) 03/06/2016 take 1 tablet (40 mg) by oral route once daily Discontinued Name Start Date Discontinued Date SIG [...] ONE CAPSULE BY MOUTH THREE TIMES DAILY Nexium 40 mg oral capsule,delayed release(DR/EC) 03/06/2016 03/06/2016 take 1 capsule (40 mg) by oral route once daily Problem List Description Status Onset Overactive bladder Active 07/07/2010 Hypertension Active 03/06/2016 Hyperlipidemia, unspecified Active 03/06/2016 Hypothyroidism, Acquired Active 03/06/2016 Arthritis Active 03/06/2016 GERD without esophagitis Active 03/06/2016 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 Vital Signs Date Time BP-Sys(mm[Hg] BP-Bhavani(mm[Hg]) HR(bpm) RR(rpm) Temp WT HT HC BMI BSA BMI Percentile O2 Sat(%) 10/07/2016 11:56:00 AM 129 mmHg 76 mmHg 94 bpm 20 rpm 97.8 F 249 lbs 67 in 39.00 kg/m2 2.31 m2 03/06/2016 8:59:00 AM 132 mmHg 72 mmHg 71 bpm 18 rpm 97.8 F 240 lbs 68 in 36.4915 kg/m 2.2854 m 97 % 09/24/2015 8:22:00 AM 137 mmHg 83 mmHg [...] F 232 lbs 68 in 35.28 kg/m2 2.247 m 96 % 09/13/2013 9:11:00 AM 136 mmHg 72 mmHg 81 bpm 18 rpm 96.2 F 234.25 lbs 68 in 35.6172 kg/m 2.26 m2 98 % 08/11/2013 3:41:00 PM 110 mmHg 86 mmHg 85 bpm 16 rpm 96 F 230 lbs 96 % 05/12/2013 3:38:00 PM 105 mmHg 60 mmHg 82 bpm 20 rpm 97.4 F 224.2 lbs 68 in 34.0891 kg/m 2.21 m2 96 % 09/30/2012 8:32:00 AM 108 mmHg 62 mmHg 100 bpm 20 rpm 95.7 F 222.2 lbs 68 in 33.79 kg/m2 2.199 m 97 % 08/09/2012 10:35:00 AM 102 mmHg 68 mmHg 88 bpm 20 rpm 222.2 lbs 68 in 33.785 kg/m 2.20 m2 99 % 08/03/2012 2:47:00 PM 109 mmHg 72 mmHg 88 bpm 18 rpm 226.4 lbs 68 in 34.42 kg/m2 2.2197 m 98 % 03/16/2012 10:01:00 AM 110 mmHg 66 mmHg 77 bpm 16 rpm 96.9 F 218.125 lbs 97 % 07/17/2011 3:40:00 PM 110 mmHg 68 mmHg 95 bpm 16 rpm 97.5 F 228.5 lbs 68 in 34.74 kg/m2 2.23 m 96 % 05/13/2011 10:51:00 AM 114 mmHg 68 mmHg 88 bpm 16 rpm 97.4 F 227.375 lbs 100 % 04/22/2011 9:17:00 AM 106 mmHg 70 mmHg 92 bpm 16 rpm 96.3 F 224.125 lbs 68 in 34.08 kg/m2 2.2085 m 97 % 12/11/2010 1:06:00 PM 124 mmHg [...] degree BS [employer] Former smoker Former 03/06/2016 - quit 2007 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 Alcohol Use - Occasional Minimal Amount of Exercise (Once weekly or less) History of Procedures Date Ordered Description Order Status 05/13/2011 12:00 AM X-RAY EXAM OF ELBOW Reviewed 05/13/2011 12:00 AM X-RAY EXAM OF FOREARM Reviewed 05/13/2011 12:00 AM Arm Sling Reviewed 08/24/2015 12:00 AM COMPREHEN METABOLIC PANEL Reviewed 08/24/2015 12:00 AM LIPID PANEL Reviewed 08/24/2015 12:00 AM ASSAY THYROID STIM HORMONE Reviewed 08/24/2015 12:00 AM VIT D 1 25-DIHYDROXY Reviewed 08/24/2015 12:00 AM COMPLETE CBC W/AUTO DIFF WBC Reviewed 08/24/2015 12:00 AM MAMMOGRAM SCREENING Reviewed 09/24/2015 12:00 AM MAMMOGRAM SCREENING Reviewed 03/16/2012 12:00 AM COMPREHEN METABOLIC PANEL Reviewed 03/16/2012 12:00 AM LIPID PANEL Reviewed 03/16/2012 12:00 AM ASSAY THYROID STIM HORMONE Reviewed 03/16/2012 12:00 AM COMPLETE CBC W/AUTO DIFF WBC Reviewed 08/09/2012 12:00 AM THER/PROPH/DIAG INJ SC/IM Reviewed 08/09/2012 12:00 AM Decadron, Per 1 Mg [facility]# [address]-19 Reviewed 08/09/2012 12:00 AM Depo-Medrol, Per 80 Mg [facility]#6393-9419-18 Reviewed 09/30/2012 12:00 AM COMPLETE CBC W/AUTO DIFF WBC Reviewed 09/30/2012 12:00 AM COMPREHEN METABOLIC PANEL Reviewed 09/30/2012 12:00 AM LIPID PANEL Reviewed 09/30/2012 12:00 AM ASSAY THYROID STIM HORMONE Reviewed 09/30/2012 12:00 AM VITAMIN D 25 HYDROXY Reviewed 09/30/2012 12:00 AM VITAMIN B-12 Reviewed 12/18/2009 12:00 AM URINALYSIS NONAUTO W/SCOPE Reviewed 12/24/2009 12:00 AM URINALYSIS AUTO W/SCOPE Reviewed 12/24/2009 12:00 AM HEPATIC FUNCTION PANEL Reviewed 01/08/2010 12:00 AM LIPID PANEL Reviewed 08/11/2013 12:00 AM COMPREHEN METABOLIC PANEL Reviewed 08/11/2013 12:00 AM LIPID PANEL Reviewed 08/11/2013 12:00 AM ASSAY THYROID STIM HORMONE Reviewed 08/11/2013 12:00 AM COMPLETE CBC W/AUTO DIFF WBC Reviewed 08/29/2013 12:00 AM MAMMOGRAM SCREENING Reviewed 07/05/2010 12:00 AM COMPREHEN METABOLIC PANEL Reviewed 07/05/2010 12:00 AM LIPID PANEL Reviewed 07/05/2010 12:00 AM ASSAY THYROID STIM HORMONE Reviewed 07/05/2010 12:00 AM VIT D 1 25-DIHYDROXY Reviewed 02/27/2014 12:00 AM COMPREHEN METABOLIC PANEL Reviewed 02/27/2014 12:00 AM LIPID PANEL Reviewed 02/27/2014 12:00 AM ASSAY THYROID STIM HORMONE Reviewed 02/27/2014 12:00 AM COMPLETE CBC W/AUTO DIFF WBC Reviewed 03/27/2014 12:00 AM CULTURE OTHR SPECIMN AEROBIC Reviewed 03/27/2014 12:00 AM DRAINAGE OF SKIN ABSCESS Reviewed 05/26/2014 12:00 AM Gastroenterology Consult Reviewed 11/12/2010 12:00 AM COMPREHEN METABOLIC PANEL Reviewed 11/12/2010 12:00 AM LIPID PANEL Reviewed 11/12/2010 12:00 AM ASSAY THYROID STIM HORMONE Reviewed 11/12/2010 12:00 AM VIT D 1 25-DIHYDROXY Reviewed 08/17/2014 12:00 AM COMPREHEN METABOLIC PANEL Reviewed 08/17/2014 12:00 AM LIPID PANEL Reviewed 08/17/2014 12:00 AM ASSAY THYROID STIM HORMONE Reviewed 08/17/2014 12:00 AM COMPLETE CBC W/AUTO DIFF WBC Reviewed 08/17/2014 12:00 AM X-RAY EXAM OF FOOT Reviewed 10/01/2009 12:00 AM ASSAY THYROID STIM HORMONE Reviewed 10/11/2014 12:00 AM MAMMOGRAM SCREENING Reviewed 10/11/2014 12:00 AM Gastroenterology Consult Reviewed 01/15/2011 12:00 AM MUSCLE TEST ONE LIMB Reviewed 01/15/2011 12:00 AM NERVE CONDUCTION, MOTOR Reviewed 01/15/2011 12:00 AM NERVE CONDUCTION, SENSORY Reviewed 01/12/2015 12:00 AM CULTURE OTHR SPECIMN AEROBIC Reviewed 01/12/2015 12:00 AM DRAINAGE OF SKIN ABSCESS Reviewed 03/05/2015 12:00 AM COMPREHEN METABOLIC PANEL Reviewed 03/05/2015 12:00 AM LIPID PANEL Reviewed 03/05/2015 12:00 AM ASSAY THYROID STIM HORMONE Reviewed 03/05/2015 12:00 AM COMPLETE CBC W/AUTO DIFF WBC Reviewed 03/05/2015 12:00 AM X-RAY EXAM OF HIP Reviewed 04/22/2011 12:00 AM COMPREHEN METABOLIC PANEL Reviewed [...] 100 GLUCOSE NEGATIVE KETONE 15 BILIRUBIN SMALL RECHECKED AND VERIFIED BLOOD NEGATIVE NITRITE NEGATIVE LEUK SCREEN NEGATIVE WBC/HPF RARE RBC/HPF NEGATIVE CASTS/LPF 2++ HYALINE CRYSTALS 1+ CALCIUM OX MUCOUS THRDS 1+ BACTERIA NEGATIVE EPITH CELLS 1+ SQUAMOUS TRICHOMONAS NEGATIVE YEAST NEGATIVE CULT SET UP ? NO 12/24/2009 1:47 PM COLOR YELLOW APPEARANCE CLEAR SPEC GRAV <=1.005 pH 6.0 PROTEIN NEGATIVE GLUCOSE NEGATIVE KETONE NEGATIVE BILIRUBIN NEGATIVE BLOOD NEGATIVE NITRITE NEGATIVE LEUK SCREEN NEGATIVE WBC/HPF NEGATIVE RBC/HPF NEGATIVE CASTS/LPF NEGATIVE CRYSTALS NEGATIVE MUCOUS THRDS NEGATIVE BACTERIA NEGATIVE EPITH CELLS NEGATIVE TRICHOMONAS NEGATIVE YEAST NEGATIVE CULT SET UP? NO SGOT/AST 15.0 IU/LSGPT/ALT 14.0 IU/LALK PHOS 72.0 IU/LTOTAL PROTEIN 7.20 g/ dLALBUMIN 4.80 g/dLTOTAL BILI 0.40 mg/dLDIRECT BILI 0.20 mg/dLINDIRECT BILI 0.20 mg/dL 01/09/2010 6:00 AM TRIGLYCERIDES 64.0 mg/dLCHOLESTEROL 198.0 mg/dLHDL 52.0 mg/ dLTOT CHOL/HDL 3.8 LDL (CALC) 133.0 mg/dLTSH 0.590 uIU/mL 07/05/2010 10:10 AM TRIGLYCERIDES 73.0 mg/dLCHOLESTEROL 207.0 mg/dLHDL 64.0 mg /dLTOT CHOL/HDL 3.2 LDL (CALC) 128.0 mg/dLTSH 0.150 uIU/mLGLUCOSE 99.0 mg/ dLSODIUM 142.0 mmol/LPOTASSIUM 4.30 mmol/LCHLORIDE 109.0 mmol/LCO2 25.0 mmol/ LBUN 19.0 mg/dLCREATININE 0.90 mg/dLSGOT/AST 13.0 IU/LSGPT/ALT 13.0 IU/LALK PHOS 76.0 IU/LTOTAL PROTEIN 7.0 g/dLALBUMIN 4.30 g/dLTOTAL BILI 0.30 mg/ dLCALCIUM 9.60 mg/dLAGE 54 GFR NonAA 65 GFR AA 79 eGFR >60 mL/min/1.73 m2eGFR AA * >60 11/15/2010 5:35 AM TSH 1.240 uIU/mLTRIGLYCERIDES 80.0 mg/dLCHOLESTEROL 215.0 mg /dLHDL 57.0 mg/dLTOT CHOL/HDL 3.8 LDL (CALC) 142.0 mg/dLGLUCOSE 98.0 mg/ dLSODIUM 141.0 mmol/LPOTASSIUM 4.40 mmol/LCHLORIDE 109.0 mmol/LCO2 23.0 mmol/ LBUN 23.0 mg/dLCREATININE 1.0 mg/dLSGOT/AST 15.0 IU/LSGPT/ALT 13.0 IU/LALK PHOS 70.0 IU/LTOTAL PROTEIN 6.40 g/dLALBUMIN 3.90 g/dLTOTAL BILI 0.30 mg/dLCALCIUM 10.10 mg/dLAGE 55 GFR NonAA 57 GFR AA 69 eGFR 57 eGFR AA* >60 04/22/2011 9:52 AM WBC 5.1 RBC 3.83 HGB 12.10 g/dLHCT 36.0 %MCV 94.0 fLMCH 31.60 pgMCHC 33.60 g/dLRDW SD 46 RDW CV 13.30 %MPV 11.20 fLPLT 160 NRBC# 0.00 NRBC% 0.0 %NEUT 62.90 %%LYMP 21.20 %%MONO 11.30 %%EOS 3.60 %%BASO 1.0 %#NEUT 3.18 #LYMP 1.07 #MONO 0.57 #EOS 0.18 #BASO 0.05 MANUAL DIFF NOT IND GLUCOSE 97.0 mg/dLSODIUM 142.0 mmol/LPOTASSIUM 4.40 mmol/LCHLORIDE 107.0 mmol/LCO2 25.0 mmol/LBUN 22.0 mg/dLCREATININE 1.10 mg/dLSGOT/AST 13.0 IU/LSGPT/ALT 12.0 IU/ LALK PHOS 77.0 IU/LTOTAL PROTEIN 7.0 g/dLALBUMIN 4.30 g/dLTOTAL BILI 0.30 mg/ dLCALCIUM 10.10 mg/dLAGE 55 GFR NonAA 51 GFR AA 62 eGFR 51 eGFR AA* >60 TRIGLYCERIDES 96.0 mg/dLCHOLESTEROL 192.0 mg/dLHDL 60.0 mg/dLTOT CHOL/HDL 3.2 LDL (CALC) 113.0 mg/dLTSH 0.720 uIU/mL 04/08/2012 5:20 AM WBC 5.5 RBC 4.06 HGB 12.70 g/dLHCT 37.70 %MCV 93.0 fLMCH 31.30 pgMCHC 33.70 g/dLRDW SD 46 RDW CV 13.60 %MPV 11.20 fLPLT 172 NRBC# 0.00 NRBC% 0.0 %NEUT 53.50 %%LYMP 34.90 %%MONO 8.0 %%EOS 3.10 %%BASO 0.50 %#NEUT 2.96 #LYMP 1.93 #MONO 0.44 #EOS 0.17 #BASO 0.03 MANUAL DIFF NOT IND GLUCOSE 103.0 mg/dLSODIUM 139.0 mmol/LPOTASSIUM 4.20 mmol/LCHLORIDE 108.0 mmol/LCO2 22.0 mmol/LBUN 26.0 mg/dLCREATININE 1.10 mg/dLSGOT/AST 15.0 IU/LSGPT/ALT 15.0 IU /LALK PHOS 79.0 IU/LTOTAL PROTEIN 6.30 g/dLALBUMIN 4.10 g/dLTOTAL BILI 0.40 mg/ dLCALCIUM 9.90 mg/dLAGE 56 GFR NonAA 51 GFR AA 62 eGFR 51 eGFR AA* 60 TRIGLYCERIDES 73.0 mg/dLCHOLESTEROL 203.0 mg/dLHDL 65.0 mg/dLTOT CHOL/HDL 3.1 LDL (CALC) 123.0 mg/dLTSH 0.810 uIU/mL 10/01/2012 5:30 AM WBC 5.5 RBC 3.69 HGB 11.40 g/dLHCT 34.20 %MCV 93.0 fLMCH 30.90 pgMCHC 33.30 g/dLRDW SD 46 RDW CV 13.40 %MPV 12.10 fLPLT 162 NRBC# 0.00 NRBC% 0.0 %NEUT 46.70 %%LYMP 40.0 %%MONO 8.90 %%EOS 3.30 %%BASO 1.10 %#NEUT 2.57 #LYMP 2.20 #MONO 0.49 #EOS 0.18 #BASO 0.06 MANUAL DIFF NOT IND VITAMIN B12 641.0 pg/mLTSH 1.0 uIU/mLTRIGLYCERIDES 93.0 mg/dLCHOLESTEROL 182.0 mg/dLHDL 55.0 mg/dLTOT CHOL/HDL 3.3 LDL (CALC) 108.0 mg/dLGLUCOSE 104.0 mg/dLSODIUM 141.0 mmol/LPOTASSIUM 4.40 mmol/LCHLORIDE 111.0 mmol/LCO2 19.0 mmol/LBUN 44.0 mg /dLCREATININE 1.50 mg/dLSGOT/AST 15.0 IU/LSGPT/ALT 16.0 IU/LALK PHOS 57.0 IU/ LTOTAL PROTEIN 6.40 g/dLALBUMIN 3.90 g/dLTOTAL BILI 0.40 mg/dLCALCIUM 10.30 mg/ dLAGE 57 GFR NonAA 36 GFR AA 44 eGFR 36 eGFR AA* 44 VITAMIN D 36.10 ng/mL 08/12/2013 5:30 AM WBC 5.5 RBC 4.00 HGB 11.90 g/dLHCT 37.30 %MCV 93.0 fLMCH 29.80 pgMCHC 31.90 g/dLRDW SD 47 RDW CV 13.90 %MPV 10.50 fLPLT 224 NRBC# 0.00 NRBC% 0.0 %NEUT 50.50 %%LYMP 36.10 %%MONO 8.20 %%EOS 4.70 %%BASO 0.50 %#NEUT 2.78 #LYMP 1.99 #MONO 0.45 #EOS 0.26 #BASO 0.03 MANUAL DIFF NOT IND GLUCOSE 106.0 mg/dLSODIUM 141.0 mmol/LPOTASSIUM 4.40 mmol/LCHLORIDE 110.0 mmol/LCO2 21.0 mmol/LBUN 34.0 mg/dLCREATININE 1.20 mg/dLSGOT/AST 21.0 IU/LSGPT/ALT 29.0 IU /LALK PHOS 101.0 IU/LTOTAL PROTEIN 6.60 g/dLALBUMIN 4.30 g/dLTOTAL BILI 0.30 mg/ dLCALCIUM 9.90 mg/dLAGE 58 GFR NonAA 46 GFR AA 56 eGFR 46 eGFR AA* 56 TRIGLYCERIDES 82.0 mg/dLCHOLESTEROL 209.0 mg/dLHDL 62.0 mg/dLTOT CHOL/HDL 3.4 LDL (CALC) 131.0 mg/dLTSH 0.90 uIU/mL 03/01/2014 9:06 AM GLUCOSE 92.0 mg/dLSODIUM 142.0 mmol/LPOTASSIUM 4.70 mmol/ LCHLORIDE 107.0 mmol/LCO2 26.0 mmol/LBUN 19.0 mg/dLCREATININE 1.10 mg/dLSGOT/ AST 15.0 IU/LSGPT/ALT 16.0 IU/LALK PHOS 83.0 IU/LTOTAL PROTEIN 7.10 g/dLALBUMIN 4.20 g/dLTOTAL BILI 0.40 mg/dLCALCIUM 9.60 mg/dLAGE 58 GFR NonAA 51 GFR AA 62 eGFR 51 eGFR AA* 60 TRIGLYCERIDES 92.0 mg/dLCHOLESTEROL 209.0 mg/dLHDL 65.0 mg/ dLTOT CHOL/HDL 3.2 LDL (CALC) 126.0 mg/dLWBC 5.2 RBC 4.09 HGB 12.50 g/dLHCT 37.20 %MCV 91.0 fLMCH 30.60 pgMCHC 33.60 g/dLRDW SD 45 RDW CV 13.50 %MPV 11.50 fLPLT 169 NRBC# 0.00 NRBC% 0.0 %NEUT 66.30 %%LYMP 25.0 %%MONO 5.60 %%EOS 2.70 %% BASO 0.40 %#NEUT 3.45 #LYMP 1.30 #MONO 0.29 #EOS 0.14 #BASO 0.02 MANUAL DIFF NOT IND TSH 0.650 uIU/mL 03/27/2014 4:49 PM SPECIMEN SOURCE: MIDDLE FINGER RT HAND 08/18/2014 5:05 AM TSH 0.420 uIU/mLTRIGLYCERIDES 67.0 mg/dLCHOLESTEROL 167.0 mg/dLHDL 57.0 mg/dLTOT CHOL/HDL 2.9 LDL (CALC) 97.0 mg/dLWBC 4.9 RBC 3.92 HGB 12.0 g/dLHCT 37.50 %MCV 96.0 fLMCH 30.60 pgMCHC 32.0 g/dLRDW SD 47 RDW CV 13.30 %MPV 10.60 fLPLT 170 NRBC# 0.00 NRBC% 0.0 %NEUT 50.90 %%LYMP 36.0 %%MONO 9.0 %% EOS 3.30 %%BASO 0.80 %#NEUT 2.49 #LYMP 1.76 #MONO 0.44 #EOS 0.16 #BASO 0.04 MANUAL DIFF NOT IND GLUCOSE 104.0 mg/dLSODIUM 143.0 mmol/LPOTASSIUM 4.20 mmol/ LCHLORIDE 109.0 mmol/LCO2 24.0 mmol/LBUN 22.0 mg/dLCREATININE 1.10 mg/dLSGOT/ AST 16.0 IU/LSGPT/ALT 17.0 IU/LALK PHOS 75.0 IU/LTOTAL PROTEIN 6.70 g/dLALBUMIN 4.0 g/dLTOTAL BILI 0.30 mg/dLCALCIUM 9.70 mg/dLAGE 59 GFR NonAA 50 GFR AA 61 eGFR 50 eGFR AA* 60 01/12/2015 4:47 PM SPECIMEN SOURCE: LESION BACK 03/06/2015 7:05 AM WBC 4.5 RBC 3.90 HGB 12.30 g/dLHCT 37.10 %MCV 95.0 fLMCH 31.50 pgMCHC 33.20 g/dLRDW SD 49 RDW CV 14.0 %MPV 11.0 fLPLT 182 NRBC# 0.00 NRBC % 0.0 %NEUT 50.40 %%LYMP 37.10 %%MONO 8.50 %%EOS 3.30 %%BASO 0.70 %#NEUT 2.26 # LYMP 1.66 #MONO 0.38 #EOS 0.15 #BASO 0.03 MANUAL DIFF NOT IND TRIGLYCERIDES 114.0 mg/dLCHOLESTEROL 215.0 mg/dLHDL 61.0 mg/dLTOT CHOL/HDL 3.5 LDL (CALC) 131.0 mg/dLGLUCOSE 98.0 mg/dLSODIUM 143.0 mmol/LPOTASSIUM 4.40 mmol/LCHLORIDE 108.0 mmol/LCO2 23.0 mmol/LBUN 22.0 mg/dLCREATININE 1.10 mg/dLSGOT/AST 17.0 IU/ LSGPT/ALT 10.0 IU/LALK PHOS 69.0 IU/LTOTAL PROTEIN 6.90 g/dLALBUMIN 4.30 g/ dLTOTAL BILI 0.60 mg/dLCALCIUM 10.20 mg/dLAGE 59 GFR NonAA 50 GFR AA 61 eGFR 50 eGFR AA* >60 TSH 1.180 uIU/mL 09/17/2015 7:15 AM WBC 5.1 RBC 4.02 HGB 12.40 g/dLHCT 38.50 %MCV 96.0 fLMCH 30.80 pgMCHC 32.20 g/dLRDW SD 49 RDW CV 13.80 %MPV 10.90 fLPLT 173 NRBC# 0.00 NRBC% 0.0 %NEUT 54.50 %%LYMP 32.50 %%MONO 8.30 %%EOS 3.90 %%BASO 0.80 %#NEUT 2.76 #LYMP 1.65 #MONO 0.42 #EOS 0.20 #BASO 0.04 MANUAL DIFF NOT IND VITAMIN D 42.80 ng/mLGLUCOSE 102.0 mg/dLSODIUM 145.0 mmol/LPOTASSIUM 4.20 mmol/LCHLORIDE 113.0 mmol/LCO2 22.0 mmol/LBUN 18.0 mg/dLCREATININE 1.10 mg/dLSGOT/AST 17.0 IU/ LSGPT/ALT 15.0 IU/LALK PHOS 86.0 IU/LTOTAL PROTEIN 6.40 g/dLALBUMIN 4.20 g/ dLTOTAL BILI 0.30 mg/dLCALCIUM 9.60 mg/dLAGE 60 GFR NonAA 50 GFR AA 61 eGFR 50 eGFR AA* >60 TRIGLYCERIDES 98.0 mg/dLCHOLESTEROL 189.0 mg/dLHDL 60.0 mg/dLTOT CHOL/HDL 3.2 LDL (CALC) 109.0 mg/dLTSH 1.180 uIU/mL History Of Immunizations Name Date Admin Mfg Name Mfg Code Trade Name Lot# Route Inj Vis Given Vis Pub CVX Td 04/22/2011 sanofi pasteur PMC ADACEL [id number] Intramuscular Left Deltoid 04/22/2011 04/14/2008 113 History of Past Illness Name Date of Onset Comments Essential Hypertension Aug 24 2009 8:15AM Dizziness Aug 24 2009 8:15AM Breast Pain/Mastodynia Aug 24 2009 8:15AM Hiatal Hernia Vitamin D deficiency Hypothyroidism, Acquired Oct 01 [...] 8:31AM Pap Smear Dec 26 2009 8:31AM Incomplete Bladder Emptying Jan 01 2010 11:12AM [...] 2010 3:56PM Osteoarthrosis Nov 12 2010 3:56PM Hypertension 03/06/2016 Hyperlipidemia, unspecified 03/06/2016 Hypothyroidism, Acquired 03/06/2016 Arthritis 03/06/2016 GERD without esophagitis 03/06/2016 Essential Hypertension Dec 11 2010 1:08PM Hyperlipidemia [...] 2011 10:33AM Cervicalgia Jan 15 2011 10:33AM Fibromyalgia 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 10/07/2016 Essential Hypertension Apr 22 2011 9:15AM Hyperlipidemia [...] for Breast Cancer Sep 24 2015 8:24AM Hypertension Mar 06 2016 9:01AM Hyperlipidemia, unspecified Mar 06 2016 9:01AM Hypothyroidism, Acquired Mar 06 2016 9:01AM Arthritis Mar 06 2016 9:01AM GERD without esophagitis Mar 06 2016 9:01AM 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 Oct 07 2016 11:58AM Mass Oct 07 2016 11:58AM Payers Insurance Name Company Name Plan Name Plan Number Policy Number Policy Group Number Start Date [employer] [facility] [id number] June History of Encounters Visit Date Visit Type Provider 10/07/2016 Procedures Pete Solomon DO 03/06/2016 Office visit Mariana Delacruz APPLICATION SPECIALIST 09/24/2015 Office visit Oly Alcocer APPLICATION SPECIALIST 08/24/2015 Office visit Oly Alcocer APPLICATION SPECIALIST 03/05/2015 Office visit Oly Alcocer APPLICATION SPECIALIST 01/12/2015 Office visit 01/12/2015 Office visit Oly Alcocer APPLICATION SPECIALIST 10/11/2014 Office visit Oly Alcocer APPLICATION SPECIALIST 08/17/2014 Office visit Oly Alcocer APPLICATION SPECIALIST 05/26/2014 Office visit Oly Alcocer APPLICATION SPECIALIST 03/27/2014 Office visit Oly Alcocer APPLICATION SPECIALIST 02/27/2014 Office visit Oly Alcocer APPLICATION SPECIALIST 01/10/2014 Office visit Oly Alcocer APPLICATION SPECIALIST 09/13/2013 Office visit Mariana Delacruz APPLICATION SPECIALIST 08/11/2013 Office visit Carlota Cintron MD 05/12/2013 Office visit Oly Alcocer APPLICATION SPECIALIST 09/30/2012 Office visit Oly Alcocer APPLICATION SPECIALIST 08/09/2012 Office visit Oly Alcocer APPLICATION SPECIALIST 08/03/2012 Office visit Oly Alcocer APPLICATION SPECIALIST 03/16/2012 Office visit Carlota Cintron MD 07/17/2011 [...]
--- OUTSIDE RECORDS SUMMARY | 2018-11-12 07:00 | XMS REPORT ---
Author Author Oly Alcocer [facility] Address [address] [place] [id number] Care Team Providers Care Chief Port Director Name Role Phone Oly Alcocer PCP Unavailable Allergies and Adverse Reactions Name Reaction Notes NO KNOWN DRUG ALLERGIES Plan of Treatment Planned Activity Comments Planned Date Planned Time Plan/Goal DXA BONE DENSITY AXIAL 09/24/2015 12:00 AM MAMMOGRAM SCREENING 09/24/2015 12:00 AM Medications Active Name Start [...] 08/09/2012 12:00 AM Decadron, Per 1 Mg [facility]# [address]-71 Reviewed 08/09/2012 12:00 AM Depo-Medrol, Per 80 Mg [facility]#3418-5869-97 Reviewed 09/30/2012 12:00 AM COMPLETE CBC W/AUTO [...] CVX Td 04/22/2011 sanofi pasteur [facility] ADACEL [id number] Intramuscular Left Deltoid 04/22/2011 04/14/2008 113 History [...] Policy Number Policy Group Number Start Date [facility] [id number] June History of Encounters Visit Date Visit Type Provider 09/24/2015 Office visit Oly Alcocer MUSICIAN INSTRUMENTAL 08/24/2015 Office visit lOy Alcocer MUSICIAN INSTRUMENTAL 03/05/2015 Office visit Oly Alcocer MUSICIAN INSTRUMENTAL 01/12/2015 Office visit 01/12/2015 Office visit Oly Alcocer MUSICIAN INSTRUMENTAL 10/11/2014 Office visit Oly Alcocer MUSICIAN INSTRUMENTAL 08/17/2014 Office visit Oly Alcocer MUSICIAN INSTRUMENTAL 05/26/2014 Office visit Oly Alcocer MUSICIAN INSTRUMENTAL 03/27/2014 Office visit Oly Alcocer MUSICIAN INSTRUMENTAL 02/27/2014 Office visit Oly Alcocer MUSICIAN INSTRUMENTAL 01/10/2014 Office visit Oly Alcocer MUSICIAN INSTRUMENTAL 09/13/2013 Office visit Mariana Delacruz MUSICIAN INSTRUMENTAL 08/11/2013 Office visit Carlota Cintron MD 05/12/2013 Office visit Oly Alcocer MUSICIAN INSTRUMENTAL 09/30/2012 Office visit Oly Alcocer MUSICIAN INSTRUMENTAL 08/09/2012 Office visit Oly Alcocer MUSICIAN INSTRUMENTAL 08/03/2012 Office visit Oly Alcocer MUSICIAN INSTRUMENTAL 03/16/2012 Office visit Carlota Cintron MD 07/17/2011 [...]
--- OUTSIDE RECORDS SUMMARY | 2018-11-12 07:01 | XMS REPORT ---
Author Author Oly Alcocer [facility] Address [address] [place] [id number] Care Team Providers Care Hydraulic Jack Adjuster Name Role Phone Oly Alcocer PCP Unavailable Allergies and Adverse Reactions Name Reaction Notes NO KNOWN DRUG ALLERGIES Plan of Treatment Planned Activity Comments Planned Date Planned Time Plan/Goal COMPREHEN METABOLIC PANEL 08/24/2015 12:00 AM LIPID PANEL 08/24/2015 12:00 AM ASSAY THYROID STIM HORMONE 08/24/2015 12:00 AM VIT D 1 25-DIHYDROXY 08/24/2015 12:00 AM COMPLETE CBC W/AUTO DIFF WBC 08/24/2015 12:00 AM MAMMOGRAM SCREENING 08/24/2015 12:00 AM Medications Active Name Start Date [...] HC BMI BSA BMI Percentile O2 Sat(%) 08/24/2015 1:14:00 PM 115 mmHg 72 mmHg 75 bpm 20 rpm 98.2 F 237.6 lbs 95 % 03/05/2015 9:05:00 AM 110 mmHg 80 mmHg 72 bpm 20 rpm 97.8 F 234 lbs 68 in 35.5792 kg/m 2.2566 m 96 % 01/12/2015 1:32:00 PM 110 mmHg 78 mmHg 101 bpm 18 rpm 97.9 F 234 lbs 68 in 35.58 kg/m2 2.26 m2 97 % 10/11/2014 1:28:00 PM 110 mmHg 68 mmHg 98 bpm 18 rpm 97.2 F 232.2 lbs 68 in 35.3055 kg/m 2.2479 m 97 % 08/17/2014 2:34:00 PM 144 mmHg 72 mmHg 78 bpm 16 rpm 98.5 F 238 lbs 68 in 36.19 kg/m2 2.28 m2 95 % 05/26/2014 1:34:00 PM 100 mmHg 64 mmHg 91 bpm 20 rpm 97.2 F 236 lbs 68 in 35.8833 kg/m 2.2663 m 94 % 03/27/2014 2:13:00 PM 102 mmHg 64 mmHg 91 bpm 20 rpm 97.2 F 233.8 lbs 68 in 35.55 kg/m2 2.26 m2 96 % 02/27/2014 8:21:00 AM 118 mmHg 76 mmHg 76 bpm 20 rpm 97 F 232 lbs 68 in 35.2751 kg/m 2.247 m 96 % 01/10/2014 1:54:00 PM 100 mmHg [...] BS Elementaty Ed Former smoker 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 Alcohol Use - Occasional Minimal Amount of Exercise (Once weekly or less) History of Procedures Date Ordered Description Order Status 05/13/2011 12:00 AM X-RAY EXAM OF ELBOW Reviewed 05/13/2011 12:00 AM X-RAY EXAM OF FOREARM Reviewed 05/13/2011 12:00 AM Arm Sling Reviewed 03/16/2012 12:00 AM COMPREHEN METABOLIC PANEL Returned 03/16/2012 12:00 AM LIPID PANEL Returned 03/16/2012 12:00 AM ASSAY THYROID STIM HORMONE Returned 03/16/2012 12:00 AM COMPLETE CBC W/AUTO DIFF WBC Returned 08/09/2012 12:00 AM THER/PROPH/DIAG INJ SC/IM Reviewed 08/09/2012 12:00 AM Decadron, Per 1 Mg [facility] [place] [address]-43 Reviewed 08/09/2012 12:00 AM Depo-Medrol, Per 80 Mg [facility] [place][id number] Reviewed 09/30/2012 12:00 AM COMPLETE CBC W/AUTO [...] mg/dLCALCIUM 10.20 mg/dLeGFR 50 TSH 1.180 uIU/mL History Of Immunizations Name Date Admin Mfg Name Mfg Code Trade Name Lot# Route Inj Vis Given Vis Pub CVX Td 04/22/2011 sanofi pasteur PMC ADACEL [id number] Intramuscular Left Deltoid 04/22/2011 04/14/2008 113 History [...] Breast cancer screening Aug 24 2015 1:16PM Payers Insurance Name Company Name Plan Name Plan Number Policy Number Policy Group Number Start Date [facility] [id number] June History of Encounters Visit Date Visit Type Provider 08/24/2015 Office visit Oly Alcocer CATALYST SUPERVISOR 03/05/2015 Office visit Oly Alcocer CATALYST SUPERVISOR 01/12/2015 Office visit Oly Alcocer CATALYST SUPERVISOR 10/11/2014 Office visit Oly Alcocer CATALYST SUPERVISOR 08/17/2014 Office visit Oly Alcocer CATALYST SUPERVISOR 05/26/2014 Office visit Oly Alcocer CATALYST SUPERVISOR 03/27/2014 Office visit Oly Alcocer CATALYST SUPERVISOR 02/27/2014 Office visit Oly Alcocer CATALYST SUPERVISOR 01/10/2014 Office visit Oly Alcocer CATALYST SUPERVISOR 09/13/2013 Office visit Mariana Delacruz CATALYST SUPERVISOR 08/11/2013 Office visit Carlota Cintron MD 05/12/2013 Office visit Oly Alcocer CATALYST SUPERVISOR 09/30/2012 Office visit Oly Alcocer CATALYST SUPERVISOR 08/09/2012 Office visit Oly Alcocer CATALYST SUPERVISOR 08/03/2012 Office visit Oly Alcocer CATALYST SUPERVISOR 03/16/2012 Office visit Carlota Cintron MD 07/17/2011 [...]
--- OUTSIDE RECORDS SUMMARY | 2018-11-12 07:02 | XMS REPORT ---
Author Author Oly Alcocer Organization [facility] Address [address] [place] [id number] Care Team Providers Care Branch General Manager Name Role Phone Oly Alcocer PCP Unavailable Allergies and Adverse Reactions Name Reaction Notes NO KNOWN DRUG ALLERGIES Plan of Treatment Planned Activity Comments Planned Date Planned Time Plan/Goal CULTURE OTHR SPECIMN AEROBIC 01/12/2015 12:00 AM Medications Active Name Start Date Estimated Completion Date SIG Comments multivitamin Oral Tablet take 1 tablet by oral route once daily with food Baby Aspirin Oral Tablet, Chewable 81 mg chew 1 tablet (81 mg) by oral route once daily Calcium 500 + D oral tablet 500 mg(1,250mg) -200 unit take 1 tablet by oral route daily Nexium oral capsule,delayed release(DR/EC) 40 mg take 1 capsule (40 mg) by oral route once daily meloxicam Oral tablet 15 mg 06/26/2014 06/21/2015 TAKE ONE-HALF TO ONE TABLET BY MOUTH EVERY DAY levothyroxine oral tablet 88 mcg 08/17/2014 02/13/2015 TAKE ONE TABLET BY MOUTH EVERY DAY lisinopril oral tablet 40 mg 08/17/2014 02/13/2015 TAKE ONE TABLET BY MOUTH EVERY DAY pravastatin oral tablet 40 mg 08/17/2014 02/13/2015 TAKE ONE TABLET BY MOUTH EVERY DAY gabapentin oral capsule 300 mg 08/17/2014 take 1 capsule (300 mg) by oral route 3 times per day Bactrim DS oral tablet 800-160 mg 01/12/2015 01/22/2015 take 1 tablet by oral route every 12 hours for 10 days Bactroban topical ointment 2 % 01/12/2015 01/22/2015 apply a small amount to the affected area by topical route 2 times per day for 10 days Name Start Date Expiration Date SIG Comments Nexium Oral Capsule, Delayed Release(E.C.) 40 mg 08/24/2009 08/19/2010 take 1 capsule by oral route daily for 30 days Phentermine Oral Capsule 37.5 mg 11/29/2009 12/29/2009 take 1 capsule (37.5 mg ) by oral route once daily before breakfast for 30 days Bactrim DS Oral Tablet 160-800 mg 12/18/2009 12/25/2009 take 1 tablet by oral route 2 times per day for 7 days Zithromax Z-Michael Oral Tab 250 MG 10/28/2010 11/02/2010 Take 2 tablets the first day (500 mg) followed by 1 tablet (250 mg) days 2-5. for 5 days Bactrim DS oral tablet 800-160 mg 03/27/2014 04/06/2014 take 1 tablet by oral route every 12 hours for 10 days Bactroban topical ointment 2 % 03/27/2014 04/06/2014 apply a small amount to the affected area by topical route 2 times per day for 10 days Discontinued Name Start Date Discontinued Date SIG Comments Vitamin D Oral Capsule 400 unit 08/03/2012 take 2 capsules by oral route daily Lisinopril-Hydrochlorothiazide Oral Tablet 10-12.5 mg 08/24/2009 take 1 tablet by oral route once daily Prilosec OTC Oral Tablet, Delayed Release (E.C.) 20 mg 08/24/2009 take 1 tablet by oral route daily Mobic Oral Tablet 15 mg 07/05/2010 11/12/2010 take 1/2-1 tablet by oral route QD Levothyroxine Oral Tablet 88 mcg 07/08/2010 01/09/2011 take 1 tablet (88 mcg) by oral route once daily Celebrex Oral Capsule 200 mg 11/12/2010 01/09/2011 take 1 capsule (200 mg) by oral route once daily Dexilant Oral Cap, Delayed Rel., Multiphasic 60 mg 11/12/2010 03/16/2012 take 1 capsule (60 mg) by oral route once daily Prednisone Oral Tablet 20 mg 12/11/2010 01/09/2011 take 3 tabs x 3 days, 2 tabs x 3 days, 1 tab x 3 days then 1/2 tab for 4 days. omeprazole Oral Capsule, Delayed Release(E.C.) 20 mg 10/13/2013 take 1 capsule (20 mg) by oral route 2 times per day estradiol Oral Tablet 1 mg 07/17/2011 01/10/2014 take 1 tablet (1 mg) by oral route once daily promethazine-codeine Oral Syrup 6.25-10 mg/5 mL 08/09/2012 09/30/2012 take 5 milliliters by oral route every 4-6 hours as needed, not to exceed 30 mL in 24 hours albuterol sulfate Inhalation HFA Aerosol Inhaler 90 mcg/actuation 08/09/2012 inhale 1 - 2 puffs by inhalation route every 6 hours as needed Cymbalta Oral capsule,delayed release(DR/EC) 60 mg 06/07/2013 07/18/2013 take 1 capsule (60 mg) by oral route once daily for 30 days per insurance needs to try other medication first Nexium oral capsule,delayed release(DR/EC) 40 mg 09/13/2013 09/14/2013 take 1 capsule by oral route daily Protonix oral tablet,delayed release (DR/EC) 40 mg 09/14/2013 10/13/2013 take 1 tablet (40 mg) by oral route once daily for 30 days Nexium oral capsule,delayed release(DR/EC) 40 mg 10/13/2013 01/10/2014 take 1 capsule (40 mg) by oral route once daily for 30 days Prevacid oral capsule,delayed release(DR/EC) 30 mg 11/23/2013 01/10/2014 take 1 capsule (30 mg) by oral route once daily before a meal for 30 days Nexium oral capsule,delayed release(DR/EC) 40 mg 01/10/2014 02/27/2014 take 1 capsule (40 mg) by oral route once daily Dexilant oral capsule,biphase delayed releas 60 mg 02/27/2014 05/26/2014 take 1 capsule (60 mg) by oral route once daily rabeprazole oral tablet,delayed release (DR/EC) 20 mg 03/24/2014 take 1 tablet (20 mg) by oral route once daily swallowing whole. Do not crush, chew and /or divide. 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 Alcohol Use - Occasional Minimal Amount of Exercise (Once weekly or less) History of Procedures Date Ordered Description Order Status 05/13/2011 12:00 AM X-RAY EXAM OF ELBOW Reviewed 05/13/2011 12:00 AM X-RAY EXAM OF FOREARM Reviewed 03/16/2012 12:00 AM COMPREHEN METABOLIC PANEL Returned 03/16/2012 12:00 AM LIPID PANEL Returned 03/16/2012 12:00 AM ASSAY THYROID STIM HORMONE Returned 03/16/2012 12:00 AM COMPLETE CBC W/AUTO DIFF WBC Returned 08/09/2012 12:00 AM THER/PROPH/DIAG INJ SC/IM Reviewed 09/30/2012 12:00 AM COMPLETE CBC W/AUTO [...] 12:00 AM DRAINAGE OF SKIN ABSCESS Reviewed 11/12/2010 12:00 AM COMPREHEN METABOLIC PANEL [...] 01/15/2011 12:00 AM NERVE CONDUCTION, SENSORY Reviewed 04/22/2011 12:00 AM COMPREHEN METABOLIC PANEL [...] g/dLTOTAL BILI 0.30 mg/dLCALCIUM 9.70 mg/dLeGFR 50 History Of Immunizations Name Date Admin Mfg Name Mfg Code Trade Name Lot# Route Inj Vis Given Vis Pub CVX Td 04/22/2011 sanofi pasteur PMC ADACEL [id number] Intramuscular Left Deltoid 04/22/2011 04/14/2008 113 History [...] 1:31PM Abscess, Back Jan 12 2015 1:35PM Payers Insurance Name Company Name Plan Name Plan Number Policy Number Policy Group Number [id number] June History of Encounters Visit Date Visit Type Provider 01/12/2015 Office visit Oly Alcocer WATER CONTROL STATION ENGINEER 10/11/2014 Office visit Oly Alcocer WATER CONTROL STATION ENGINEER 08/17/2014 Office visit Oly Alcocer WATER CONTROL STATION ENGINEER 05/26/2014 Office visit Oly Alcocer WATER CONTROL STATION ENGINEER 03/27/2014 Office visit Oly Alcocer WATER CONTROL STATION ENGINEER 02/27/2014 Office visit Oly Alcocer WATER CONTROL STATION ENGINEER 01/10/2014 Office visit Oly Alcocer WATER CONTROL STATION ENGINEER 09/13/2013 Office visit Mariana Delacruz WATER CONTROL STATION ENGINEER 08/11/2013 Office visit Carlota Cintron MD 05/12/2013 Office visit Oly Alcocer WATER CONTROL STATION ENGINEER 09/30/2012 Office visit Oly Alcocer WATER CONTROL STATION ENGINEER 08/09/2012 Office visit Oly Alcocer WATER CONTROL STATION ENGINEER 08/03/2012 Office visit Oly Alcocer WATER CONTROL STATION ENGINEER 03/16/2012 Office visit Carlota Cintron MD 07/17/2011 [...]
[2018-11-12] MEDS ORDERED: D5 LR IV SOLUTION 1,000 ML IV STA (07:03)
--- OUTSIDE RECORDS SUMMARY | 2018-11-12 07:03 | XMS REPORT ---
Author Author Oly Alcocer [facility] Address [address] [place] [id number] Care Team Providers Care Medical Chemist Name Role Phone Oly Alcocer PCP Unavailable Allergies and Adverse Reactions Name Reaction Notes NO KNOWN DRUG ALLERGIES Plan of Treatment Planned Activity Comments Planned Date Planned Time Plan/Goal COMPREHEN METABOLIC PANEL 03/05/2015 12:00 AM LIPID PANEL 03/05/2015 12:00 AM ASSAY THYROID STIM HORMONE 03/05/2015 12:00 AM COMPLETE CBC W/AUTO DIFF WBC 03/05/2015 12:00 AM X-RAY EXAM OF HIP 03/05/2015 12:00 AM Medications Active Name Start Date [...] (40 mg) by oral route once daily advil PM Osteo biflex gabapentin oral capsule 300 mg 03/05/2015 take 1 capsule (300 mg) by oral route 3 times per day levothyroxine oral tablet 88 mcg 03/05/2015 09/01/2015 TAKE ONE TABLET BY MOUTH EVERY DAY lisinopril oral tablet 40 mg 03/05/2015 09/01/2015 TAKE ONE TABLET BY MOUTH EVERY DAY meloxicam Oral tablet 15 mg 03/05/2015 09/01/2015 TAKE ONE-HALF TO ONE TABLET BY MOUTH EVERY DAY pravastatin oral tablet 40 mg 03/05/2015 09/01/2015 TAKE ONE TABLET BY MOUTH EVERY DAY [...] per day for 10 days Bactrim DS oral tablet 800-160 mg 01/12/2015 [...] HC BMI BSA BMI Percentile O2 Sat(%) 03/05/2015 9:05:00 AM 110 mmHg 80 mmHg 72 bpm 20 rpm 97.8 F 234 lbs 68 in 35.58 kg/m2 2.26 m2 96 % 01/12/2015 1:32:00 PM 110 mmHg 78 mmHg 101 bpm 18 rpm 97.9 F 234 lbs 68 in 35.5792 kg/m 2.2566 m 97 % 10/11/2014 1:28:00 PM 110 mmHg 68 mmHg 98 bpm 18 rpm 97.2 F 232.2 lbs 68 in 35.31 kg/m2 2.25 m2 97 % 08/17/2014 2:34:00 PM 144 mmHg 72 mmHg 78 bpm 16 rpm 98.5 F 238 lbs 68 in 36.1874 kg/m 2.2758 m 95 % 05/26/2014 1:34:00 PM 100 mmHg 64 mmHg 91 bpm 20 rpm 97.2 F 236 lbs 68 in 35.88 kg/m2 2.27 m2 94 % 03/27/2014 2:13:00 PM 102 mmHg 64 mmHg 91 bpm 20 rpm 97.2 F 233.8 lbs 68 in 35.5488 kg/m 2.2557 m 96 % 02/27/2014 8:21:00 AM 118 mmHg 76 mmHg 76 bpm 20 rpm 97 F 232 lbs 68 in 35.28 kg/m2 2.25 m2 96 % 01/10/2014 1:54:00 PM 100 mmHg 62 mmHg 75 bpm 20 rpm 97.4 F 232 lbs 68 in 35.2751 kg/m 2.247 m 96 % 09/13/2013 9:11:00 AM 136 mmHg 72 mmHg 81 bpm 18 rpm 96.2 F 234.25 lbs 68 in 35.62 kg/m2 2.26 m2 98 % 08/11/2013 3:41:00 PM 110 mmHg 86 mmHg 85 bpm 16 rpm 96 F 230 lbs 96 % 05/12/2013 3:38:00 PM 105 mmHg 60 mmHg 82 bpm 20 rpm 97.4 F 224.2 lbs 68 in 34.09 kg/m2 2.21 m2 96 % 09/30/2012 8:32:00 AM 108 mmHg 62 mmHg 100 bpm 20 rpm 95.7 F 222.2 lbs 68 in 33.785 kg/m 2.199 m 97 % 08/09/2012 10:35:00 AM 102 mmHg 68 mmHg 88 bpm 20 rpm 222.2 lbs 68 in 33.79 kg/m2 2.20 m2 99 % 08/03/2012 2:47:00 PM 109 mmHg 72 mmHg 88 bpm 18 rpm 226.4 lbs 68 in 34.4236 kg/m 2.2197 m 98 % 03/16/2012 10:01:00 AM 110 mmHg 66 mmHg 77 bpm 16 rpm 96.9 F 218.125 lbs 97 % 07/17/2011 3:40:00 PM 110 mmHg 68 mmHg 95 bpm 16 rpm 97.5 F 228.5 lbs 68 in 34.7429 kg/m 2.23 m 96 % 05/13/2011 10:51:00 AM 114 mmHg 68 mmHg 88 bpm 16 rpm 97.4 F 227.375 lbs 100 % 04/22/2011 9:17:00 AM 106 mmHg 70 mmHg 92 bpm 16 rpm 96.3 F 224.125 lbs 68 in 34.0777 kg/m 2.2085 m 97 % 12/11/2010 1:06:00 PM [...] rpm 97.4 F 219.375 lbs 68 in 33.36 kg/m2 2.18 m2 08/24/2009 8:09:00 AM 138 mmHg 80 mmHg 80 bpm 20 rpm 96.2 F 220.25 lbs 68 in 33.4886 kg/m 2.1893 m 08/01/2009 4:28:00 PM 136 mmHg 90 mmHg 60 bpm 18 rpm 219 lbs 07/05/2009 4:28:00 PM 140 mmHg 80 mmHg 80 bpm 18 rpm 97.4 F 217 lbs 68 in 32.9944 kg/m 2.1731 m Social History Name Description Comments Grown Children x1 Lives with spouse in a house College graduate bachelors degree BS Element[employer] Former smoker quit 2005 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 [...] 12:00 AM DRAINAGE OF SKIN ABSCESS Reviewed 04/22/2011 12:00 AM COMPREHEN METABOLIC PANEL Reviewed 04/22/2011 12:00 AM LIPID PANEL Reviewed 04/22/2011 12:00 AM ASSAY THYROID STIM HORMONE Reviewed 04/22/2011 12:00 AM COMPLETE CBC W/AUTO DIFF WBC Reviewed 04/22/2011 12:00 AM VIT D 1 25-DIHYDROXY Reviewed 04/22/2011 12:00 AM IMMUNIZATION ADMIN Reviewed 04/22/2011 12:00 AM TD VACCINE NO PRSRV IM Reviewed Results Summary Data and Description [...] CVX Td 04/22/2011 sanofi pasteur PMC ADACEL [id number] Intramuscular Left Deltoid 04/22/2011 04/14/2008 113 History [...] 8:31AM Pap Smear Dec 26 2009 8:31AM hypothyroidism Incomplete Bladder Emptying Jan 01 2010 11:12AM [...] Left hip pain Mar 05 2015 9:06AM Payers Insurance Name Company Name Plan Name Plan Number Policy Number Policy Group Number Start Date [facility] [id number] June History of Encounters Visit Date Visit Type Provider 03/05/2015 Office visit Oly Alcocer FLASK HANDLER 01/12/2015 Office visit Oly Alcocer FLASK HANDLER 10/11/2014 Office visit Oly Alcocer FLASK HANDLER 08/17/2014 Office visit Oly Alcocer FLASK HANDLER 05/26/2014 Office visit Oly Alcocer FLASK HANDLER 03/27/2014 Office visit Oly Alcocer FLASK HANDLER 02/27/2014 Office visit Oly Alcocer FLASK HANDLER 01/10/2014 Office visit Oly Alcocer FLASK HANDLER 09/13/2013 Office visit Mariana Delacruz FLASK HANDLER 08/11/2013 Office visit Carlota Cintron MD 05/12/2013 Office visit Oly Alcocer FLASK HANDLER 09/30/2012 Office visit Oly Alcocer FLASK HANDLER 08/09/2012 Office visit Oly Alcocer FLASK HANDLER 08/03/2012 Office visit Oly Alcocer FLASK HANDLER 03/16/2012 Office visit Carlota Cintron MD 07/17/2011 [...]
--- OUTSIDE RECORDS SUMMARY | 2018-11-12 07:05 | XMS REPORT ---
Author Author Pete Solomon [facility] Address [address] [place], [place] [phone] Care Team Providers Care Scanner Supervisor Name Role Phone Pete Solomon PCP Unavailable [...] by oral route 3 times per day Nexium 40 mg oral capsule,delayed release(DR/EC) take [...] (40 mg) by oral route once daily levothyroxine 88 mcg oral tablet 09/09/2016 10/09/2016 TAKE ONE TABLET BY MOUTH EVERY DAY for 30 days gabapentin 300 mg oral capsule 09/09/2016 10/09/2016 take 1 capsule (300 mg) by oral route 3 times per day for 30 days Discontinued Name Start Date Discontinued Date [...] HC BMI BSA BMI Percentile O2 Sat(%) 10/22/2016 10:33:00 AM 129 mmHg 76 mmHg 94 bpm 20 rpm 97.8 F 249 lbs 67 in 39.00 kg/m2 2.31 m2 10/07/2016 11:56:00 AM 129 mmHg 76 mmHg 94 bpm 20 rpm 97.8 F 249 lbs 67 in 38.9985 kg/m 2.3107 m 03/06/2016 8:59:00 AM 132 mmHg 72 mmHg 71 bpm 18 rpm 97.8 F 240 lbs 68 in 36.49 kg/m2 2.29 m2 97 % 09/24/2015 8:22:00 AM 137 mmHg [...] 08/09/2012 12:00 AM Decadron, Per 1 Mg [facility]# [address]-79 Reviewed 08/09/2012 12:00 AM Depo-Medrol, Per 80 Mg [facility]#7015-3302-96 Reviewed 09/30/2012 12:00 AM COMPLETE CBC W/AUTO [...] Vis Given Vis Pub CVX Td 04/22/2011 rosinaofi meli PMC ADACEL [id number] Intramuscular Left Deltoid 04/22/2011 04/14/2008 113 History [...] Policy Group Number Start Date BCBS [facility] [place] [id number] June History of Encounters Visit Date Visit Type Provider 10/22/2016 Procedures Pete Solomon DO 10/07/2016 Procedures Pete Solomon DO 03/06/2016 Office visit Mariana Delacruz LABORATORY MECHANICAL TECHNICIAN 09/24/2015 Office visit Oly Alcocer LABORATORY MECHANICAL TECHNICIAN 08/24/2015 Office visit Oly Alcocer LABORATORY MECHANICAL TECHNICIAN 03/05/2015 Office visit Oly Alcocer LABORATORY MECHANICAL TECHNICIAN 01/12/2015 Office visit 01/12/2015 Office visit Oly Alcocer LABORATORY MECHANICAL TECHNICIAN 10/11/2014 Office visit Oly Alcocer LABORATORY MECHANICAL TECHNICIAN 08/17/2014 Office visit Oly Alcocer LABORATORY MECHANICAL TECHNICIAN 05/26/2014 Office visit Oly Alcocer LABORATORY MECHANICAL TECHNICIAN 03/27/2014 Office visit Oly Alcocer LABORATORY MECHANICAL TECHNICIAN 02/27/2014 Office visit Oly Alcocer LABORATORY MECHANICAL TECHNICIAN 01/10/2014 Office visit Oly Alcocer LABORATORY MECHANICAL TECHNICIAN 09/13/2013 Office visit Mariana Delacruz LABORATORY MECHANICAL TECHNICIAN 08/11/2013 Office visit Carlota Cintron MD 05/12/2013 Office visit Oly Alcocer LABORATORY MECHANICAL TECHNICIAN 09/30/2012 Office visit Oly Alcocer LABORATORY MECHANICAL TECHNICIAN 08/09/2012 Office visit Oly Alcocer LABORATORY MECHANICAL TECHNICIAN 08/03/2012 Office visit Oly Alcocer LABORATORY MECHANICAL TECHNICIAN 03/16/2012 Office visit Carlota Cintron MD 07/17/2011 [...]
--- OUTSIDE RECORDS SUMMARY | 2018-11-12 07:06 | XMS REPORT ---
Author Author Oly Alcocer Organization [facility] Address [address] [place] [id number] Care Team Providers Care Manager Plan Name Role Phone Oly Alcocer PCP Unavailable [...] NERVE CONDUCTION, SENSORY Reviewed 01/12/2015 12:00 AM DRAINAGE OF SKIN [...] CVX Td 04/22/2011 sanofi pasteur PMC ADACEL [id number] Intramuscular Left Deltoid 04/22/2011 04/14/2008 113 History [...] 2015 1:35PM Abscess Jan 12 2015 3:22PM Payers Insurance Name Company Name Plan Name Plan Number Policy Number Policy Group Number Start Date Bcbs [facility] [id number] June History of Encounters Visit Date Visit Type Provider 01/12/2015 Office visit Oly Alcocer CURAM DEVELOPER 10/11/2014 Office visit Oly Alcocer CURAM DEVELOPER 08/17/2014 Office visit Oly Alcocer CURAM DEVELOPER 05/26/2014 Office visit Oly Alcocer CURAM DEVELOPER 03/27/2014 Office visit Oly Alcocer CURAM DEVELOPER 02/27/2014 Office visit Oly Alcocer CURAM DEVELOPER 01/10/2014 Office visit Oly Alcocer CURAM DEVELOPER 09/13/2013 Office visit Mariana Delacruz CURAM DEVELOPER 08/11/2013 Office visit Carlota Cintron MD 05/12/2013 Office visit Oly Alcocer CURAM DEVELOPER 09/30/2012 Office visit Oly Alcocer CURAM DEVELOPER 08/09/2012 Office visit Oly Alcocer CURAM DEVELOPER 08/03/2012 Office visit Oly Alcocer CURAM DEVELOPER 03/16/2012 Office visit Carlota Cintron MD 07/17/2011 [...]
--- OUTSIDE RECORDS SUMMARY | 2018-11-12 07:07 | XMS REPORT ---
Author Author Pete Solomon [facility] Address [address] [place], [place] [phone] Care Team Providers Care Rn Manager Name Role Phone Pete Solomon PCP Unavailable [...] 12:00 AM Decadron, Per [address] [facility]# [id number] Reviewed 08/09/2012 12:00 AM Depo-Medrol, Per [address] [facility]#3447-2500-44 Reviewed 09/30/2012 12:00 AM COMPLETE CBC W/AUTO [...] CVX Td 04/22/2011 sanofi pasteur PMC ADACEL [id number] Intramuscular Left Deltoid 04/22/2011 04/14/2008 113 History [...] the soft tissue Oct 07 2016 11:58AM Payers Insurance Name Company Name Plan Name Plan Number Policy Number Policy Group Number Start Date BCBS [facility] [place] [id number] June History of Encounters Visit Date Visit Type Provider 10/07/2016 Procedures Pete Solomon DO 03/06/2016 Office visit Mariana Delacruz WASTEWATER PROJECT MANAGER 09/24/2015 Office visit Oly Alcocer WASTEWATER PROJECT MANAGER 08/24/2015 Office visit Oly Alcocer WASTEWATER PROJECT MANAGER 03/05/2015 Office visit Oly Alcocer WASTEWATER PROJECT MANAGER 01/12/2015 Office visit 01/12/2015 Office visit Oly Alcocer WASTEWATER PROJECT MANAGER 10/11/2014 Office visit Oly Alcocer WASTEWATER PROJECT MANAGER 08/17/2014 Office visit Oly Alcocer WASTEWATER PROJECT MANAGER 05/26/2014 Office visit Oly Alcocer WASTEWATER PROJECT MANAGER 03/27/2014 Office visit Oly Alcocer WASTEWATER PROJECT MANAGER 02/27/2014 Office visit Oly Alcocer WASTEWATER PROJECT MANAGER 01/10/2014 Office visit Oly Alcocer WASTEWATER PROJECT MANAGER 09/13/2013 Office visit Mariana Delacruz WASTEWATER PROJECT MANAGER 08/11/2013 Office visit Carlota Cintron MD 05/12/2013 Office visit Oly Alcocer WASTEWATER PROJECT MANAGER 09/30/2012 Office visit Oly Alcocer WASTEWATER PROJECT MANAGER 08/09/2012 Office visit lOy Alcocer WASTEWATER PROJECT MANAGER 08/03/2012 Office visit Oly Alcocer WASTEWATER PROJECT MANAGER 03/16/2012 Office visit Carlota Cintron MD 07/17/2011 [...]
--- OUTSIDE RECORDS SUMMARY | 2018-11-12 07:09 | XMS REPORT | Continuity of Care Document ---
Author Author [facility] Organization [facility] Address Unknown Phone Unavailable Allergies Active Description Code Type Severity Reaction Onset Reported/Identified Relationship to Patient Clinical Status Yes No Known Allergies [id number] N /A N/A Yes No Known Drug Allergies [id number] Drug Allergy Unknown N/A 11/05/2018 Medications There is no data. Problems Date Dx Coded Attending Type Code Diagnosis Diagnosed By 04/15/2017 MATY KNUTSON Ot M25.552 PAIN IN LEFT HIP 11/05/2018 MARIA ISABEL JOHNSON, VICKY Montez Ot Z01.818 ENCOUNTER FOR OTHER PREPROCEDURAL EXAMIN 11/05/2018 VICKY NICOLAS MD Ot Z01.818 ENCOUNTER FOR OTHER PREPROCEDURAL EXAMIN 11/05/2018 VICKY NICOLAS MD Ot Z01.818 ENCOUNTER FOR OTHER PREPROCEDURAL EXAMIN 11/05/2018 VICKY NICOLAS MD Ot Z01.818 ENCOUNTER FOR OTHER PREPROCEDURAL EXAMIN 11/08/2018 MATY KNUTSON Ot M25.552 PAIN IN LEFT HIP 11/11/2018 VICKY NICOLAS MD Ot Z01.818 ENCOUNTER FOR OTHER PREPROCEDURAL EXAMIN 11/12/2018 MATY KNUTSON Ot M25.552 PAIN IN LEFT HIP Procedures There is no data. Results Test Result Range Automated blood complete blood count (hemogram) panel - 04/01/17 11:25 Blood leukocytes automated count (number/volume) 8.9 10*3/uL 4.3-11.0 Blood erythrocytes automated count (number/volume) 4.01 10*6/uL 4.35-5.85 Venous blood hemoglobin measurement (mass/volume) 12.3 g/dL 11.5-16.0 Blood hematocrit (volume fraction) 38 % 35-52 Automated erythrocyte mean corpuscular volume 96 [foz_us] 80-99 Automated erythrocyte mean corpuscular hemoglobin (mass per erythrocyte) 31 pg 25-34 Automated erythrocyte mean corpuscular hemoglobin concentration measurement ( mass/volume) 32 g/dL 32-36 Automated erythrocyte distribution width ratio 14.1 % 10.0-14.5 Automated blood platelet count (count/volume) 183 10*3/uL 130-400 Automated blood platelet mean volume measurement 11.2 [foz_us] 7.4-10.4 Comprehensive metabolic panel - 04/01/17 11:25 Serum or plasma sodium measurement (moles/volume) 141 mmol/L 135-145 Serum or plasma potassium measurement (moles/volume) 4.3 mmol/L 3.6-5.0 Serum or plasma chloride measurement (moles/volume) 108 mmol/L 98-107 Carbon dioxide 27 mmol/L 21-32 Serum or plasma anion gap determination (moles/volume) 6 mmol/L 5-14 Serum or plasma urea nitrogen measurement (mass/volume) 21 mg/dL 7-18 Serum or plasma creatinine measurement (mass/volume) 1.07 mg/dL 0.60-1.30 Serum or plasma urea nitrogen/creatinine mass ratio 20 NRG Serum or plasma creatinine measurement with calculation of estimated glomerular filtration rate 52 NRG Serum or plasma glucose measurement (mass/volume) 91 mg/dL 70-105 Serum or plasma calcium measurement (mass/volume) 10.1 mg/dL 8.5-10.1 Serum or plasma total bilirubin measurement (mass/volume) 0.4 mg/dL 0.1-1.0 Serum or plasma alkaline phosphatase measurement (enzymatic activity/volume) 83 U/L 40-136 Serum or plasma aspartate aminotransferase measurement (enzymatic activity/ volume) 17 U/L 5-34 Serum or plasma alanine aminotransferase measurement (enzymatic activity/volume ) 18 U/L 0-55 Serum or plasma protein measurement (mass/volume) 6.8 g/dL 6.4-8.2 Serum or plasma albumin measurement (mass/volume) 4.3 g/dL 3.2-4.5 Lipid 1996 panel - 04/01/17 11:25 Serum or plasma triglyceride measurement (mass/volume) 98 mg/dL <150 Serum or plasma cholesterol measurement (mass/volume) 206 mg/dL < 200 Serum or plasma cholesterol in HDL measurement (mass/volume) 63 mg/ dL 40-60 Cholesterol in LDL [mass/volume] in serum or plasma by direct assay 132 mg/dL 1-129 Serum or plasma cholesterol in VLDL measurement (mass/volume) 20 mg/ dL 5-40 THYROID STIMULATING HORMONE - 04/01/17 11:25 THYROID STIMULATING HORMONE 0.51 u[iU]/mL 0.35-4.94 Serum or plasma thyroxine (T4) free measurement (mass/volume) - 04/01/17 11:25 Serum or plasma thyroxine (T4) free measurement (mass/volume) 1.06 ng/dL 0.70-1.48 Encounters ACCT No. Visit Date/Time Discharge Status Pt. Type Provider Facility Loc./Unit Complaint [id number] 10/22/2016 11:25:07 10/22/2016 23:59:59 CLS Outpatient RandallPete wheatley [id number] 10/07/2016 12:12:29 10/07/2016 23:59:59 CLS Outpatient Pete Solomon [id number] 03/06/2016 09:55:57 03/06/2016 23:59:59 CLS Outpatient Mariana Delacruz [id number] 09/24/2015 09:09:24 09/24/2015 23:59:59 CLS Outpatient Oly Alcocer [id number] 08/24/2015 14:07:17 08/24/2015 23:59:59 CLS Outpatient Oly Alcocer [id number] 04/16/2015 22:04:57 04/16/2015 23:59:59 CLS Outpatient Oly Alcocer [id number] 01/12/2015 14:22:46 01/12/2015 23:59:59 CLS Outpatient Oly Alcocer [id number] 08/17/2014 15:23:24 08/17/2014 23:59:59 CLS Outpatient Oly Alcocer [id number] 05/26/2014 14:25:07 05/26/2014 23:59:59 CLS Outpatient Oly Alcocer [id number] 03/27/2014 14:55:01 03/27/2014 23:59:59 CLS Outpatient Oly Alcocer [id number] 02/27/2014 09:11:18 02/27/2014 23:59:59 CLS Outpatient Oly Alcocer [id number] 01/10/2014 14:48:11 01/10/2014 23:59:59 CLS Outpatient Oly Alcocer [id number] 09/13/2013 10:04:52 09/13/2013 23:59:59 CLS Outpatient Mariana Delacruz [id number] 11/05/2018 11:15:00 11/05/2018 11:47:00 DIS Outpatient VICKY NICOLAS MD [facility] PREOP EGD [id number] 04/01/2017 10:36:00 04/01/2017 23:59:59 CLS Outpatient MATY KNUTSON [facility] RAD L HIP PAIN, HYPO THYROID HYPERTENSION [id number] 11/12/2018 06:52:00 ACT Outpatient VICKY NICOLAS MD [facility] ENDO REFLUX REFRACTORY PPI THERAPY [id number] 03/08/2018 15:50:56 Document Registration [id number] 01/05/2018 10:49:06 Document Registration 03/201810/28/2018 10:20:54 10/28/2018 23:59:59 CLS Outpatient Muriel Quispe 02/201704/01/2017 09:09:56 04/01/2017 23:59:59 CLS Outpatient Muriel Quispe [id number] 03/06/2016 15:52:36 03/06/2016 23:59:59 CLS Outpatient
--- OUTSIDE RECORDS SUMMARY | 2018-11-12 07:09 | XMS REPORT ---
Author Author Mariana Delacruz Organization [facility] Address [address] [place], [place] [id number] Care Team Providers Care Plant Cytologist Name Role Phone Mariana Delacruz PCP Unavailable Allergies and Adverse Reactions Name [...] per day gabapentin 300 mg oral capsule 03/06/2016 09/02/2016 TAKE ONE CAPSULE BY MOUTH THREE TIMES DAILY for 90 days levothyroxine 88 mcg oral tablet 03/06/2016 09/02/2016 TAKE ONE TABLET BY MOUTH EVERY DAY lisinopril 40 mg oral tablet 03/06/2016 09/02/2016 [...] Active 03/06/2016 GERD without esophagitis Active 03/06/2016 Vital Signs Date Time BP-Sys(mm[Hg] BP-Bhavani(mm[Hg]) HR(bpm) RR(rpm) Temp WT HT HC BMI BSA BMI Percentile O2 Sat(%) 03/06/2016 8:59:00 AM 132 mmHg 72 mmHg [...] Ed Former smoker Former 03/06/2016 - quit 2006 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 [...] Returned 08/24/2015 12:00 AM MAMMOGRAM SCREENING Reviewed 09/24/2015 12:00 AM MAMMOGRAM SCREENING Returned 03/16/2012 12:00 AM COMPREHEN METABOLIC PANEL Returned 03/16/2012 12:00 AM LIPID PANEL Returned 03/16/2012 12:00 AM ASSAY THYROID STIM HORMONE Returned 03/16/2012 12:00 AM COMPLETE CBC W/AUTO DIFF WBC Returned 08/09/2012 12:00 AM THER/PROPH/DIAG INJ SC/IM Reviewed 08/09/2012 12:00 AM Decadron, Per 1 Mg [facility]# [address]-31 Reviewed 08/09/2012 12:00 AM Depo-Medrol, Per 80 Mg [facility]#1678-8272-60 Reviewed 09/30/2012 12:00 AM COMPLETE CBC W/AUTO [...] Given Vis Pub CVX Td 04/22/2011 [facility] ADACEL [id number] Intramuscular Left Deltoid 04/22/2011 04/14/2008 113 History [...] GERD without esophagitis Mar 06 2016 9:01AM Payers Insurance Name Company Name Plan Name Plan Number Policy Number Policy Group Number Start Date [employer] [place] [id number] June History of Encounters Visit Date Visit Type Provider 03/06/2016 Office visit Mariana Delacruz NEUROCRITICAL CARE PHYSICIAN 09/24/2015 Office visit Oly Alcocer NEUROCRITICAL CARE PHYSICIAN 08/24/2015 Office visit Oly Alcocer NEUROCRITICAL CARE PHYSICIAN 03/05/2015 Office visit Oly Alcocer NEUROCRITICAL CARE PHYSICIAN 01/12/2015 Office visit 01/12/2015 Office visit Oly Alcocer NEUROCRITICAL CARE PHYSICIAN 10/11/2014 Office visit Oly Alcocer NEUROCRITICAL CARE PHYSICIAN 08/17/2014 Office visit Oly Alcocer NEUROCRITICAL CARE PHYSICIAN 05/26/2014 Office visit Oly Alcocer NEUROCRITICAL CARE PHYSICIAN 03/27/2014 Office visit Oly Alcocer NEUROCRITICAL CARE PHYSICIAN 02/27/2014 Office visit Oly Alcocer NEUROCRITICAL CARE PHYSICIAN 01/10/2014 Office visit Oly Alcocer NEUROCRITICAL CARE PHYSICIAN 09/13/2013 Office visit Mariana Delacruz NEUROCRITICAL CARE PHYSICIAN 08/11/2013 Office visit Carlota Cintron MD 05/12/2013 Office visit Oly Alcocer NEUROCRITICAL CARE PHYSICIAN 09/30/2012 Office visit Oly Alcocer NEUROCRITICAL CARE PHYSICIAN 08/09/2012 Office visit Oly Alcocer NEUROCRITICAL CARE PHYSICIAN 08/03/2012 Office visit Oly Alcocer NEUROCRITICAL CARE PHYSICIAN 03/16/2012 Office visit Carlota Cintron MD 07/17/2011 [...]
[2018-11-12] MEDS ORDERED: HURRICAINE EXT TUBE (BENZOCAINE) XX PRN (07:15)
[2018-11-12] MEDS ORDERED: LIDOCAINE JELLY 2% 6 ML SYRINGE MM PRN (07:15)
[2018-11-12 07:23] VITALS: BP 167/93
[2018-11-12] MEDS ORDERED: proPOfol 200 MG/20 ML (DIPRIVAN) VIAL IV ONE ×2 (07:26→08:15)
[2018-11-12] MEDS ORDERED: D5 LR IV SOLUTION 0 ML IV ONE (07:31)
[2018-11-12] MEDS ORDERED: HURRICAINE EXT TUBE (BENZOCAINE) ONE (07:58)
[2018-11-12] MEDS ORDERED: LIDOCAINE JELLY 2% 6 ML SYRINGE ONE (07:58)
--- NOTE | 2018-11-12 08:29 | Pre-Op Note & Conscious Sedat ---
Pre-Operative Progress Note H&P Reviewed The H&P was reviewed, patient examined and no changes noted. Date H&P Reviewed: Nov 12, 2018 Time H&P Reviewed: 07:40 Conscious Sedation Pre-Proced ASA Score 2 For ASA 3 and 4: Consider anesthesia and medical clearance. Also, for patients with a history of failed moderate sedation consider anesthesia. Airway Lungs Heart ASA score ASA 1: a normal healthy patient ASA 2: a patient with a mild systemic disease (mid diabetes, controlled hypertension, obesity ASA 3: a patient with a severe systemic disease that limits activity (angina , COPD, prior Myocardial infarction) ASA 4: a patient with an incapacitating disease that is a constant threat to life (CHF, renal failure) ASA 5: a moribund patient not expected to survive 24 hrs. (ruptured aneurysm) ASA 6: a declared brain- patient whose organs are being harvested. For emergent operations, add the letter E after the classification Mallampati Classification Grade 3 Sedation Plan Analgesia, Amnesia, Plan communicated to team members, Discussed options with patient/fam, Discussed risks with patient/fam The patient is an appropriate candidate to undergo the planned procedure, sedation, and anesthesia. The patient immediately re-assessed prior to indication. VICKY NICOLAS MD Nov 12, 2018 08:29
[2018-11-12 08:30] VITALS: BP 124/68
--- NOTE | 2018-11-12 08:37 | Anesthesia-General Post-Op ---
MAC Patient Condition Mental Status/LOC: Same as Preop Cardiovascular: Satisfactory Nausea/Vomiting: Absent Respiratory: Satisfactory Pain: Controlled Complications: Absent Post Op Complications Complications None Follow Up Care/Instructions Patient Instructions None needed. Anesthesiology Discharge Order Discharge Order Patient is doing well, no complaints, stable vital signs, no apparent adverse anesthesia problems. No complications reported per nursing. TONIO WILEY CRNA Nov 12, 2018 08:37
[2018-11-12 09:00] VITALS: BP 131/77
[2018-11-12 09:05] VITALS: BP 131/77
--- NOTE | 2018-11-12 15:14 | OPERATIVE REPORT ---
DATE OF SERVICE: EGD SUMMARY PRIMARY CARE PROVIDER: Muriel Quispe DO. INDICATION FOR THE PROCEDURE: Reflux refractory to PPI therapy. DESCRIPTION OF PROCEDURE: The patient was placed in the left lateral decubitus position. The endoscope was inserted in the oral cavity and under direct visualization, the esophagus was intubated. The endoscope was passed down the esophagus through the stomach and the second portion of the duodenum. Careful inspection was made as the endoscope was withdrawn. The patient tolerated the procedure well. FINDINGS: The posterior pharynx, arytenoid aperture and true and false vocal folds were unremarkable. Vocal cords were unremarkable with no evidence for erythema. The proximal and mid esophagus was unremarkable. The Z line was proximally placed secondary to a large hiatal hernia at 20 cm from the incisural orifice. This formed a pocket where some bilious fluid was noted to be pooling. Several small circular erosions were noted. There was erythema noted at the Z line without evidence for ulceration, could not rule out the possibility of short segment Urias's. No evidence of rings, webs or strictures were noted. Two biopsies were obtained and submitted for histopathology. Some bilious fluid was noted in the fundus without evidense for gastritis. The cardia, fundus and antrum were unremarkable. No evidence for gastritis or erosions or peptic ulcer disease were noted. The pylorus, the pyloric channel, the duodenal bulb and the second portion of duodenum were unremarkable. ASSESSMENT: A large hiatal hernia is present with about 20% to 30% of the stomach being present above the level of the diaphragm. There was evidence for erosive esophagitis with circular erosions roughly 3mm in size in the distal esophagus with fluid pooling secondary to this patients large hiatal hernia. ulceration was not noted at the Z line. I suspect prolonged contact with aspirin are aggravating this patient's reflux. Considering recent studies showing no benefit for primary prevention for aspirin, I advised that she stop aspirin and consider stopping chondroitin. She had noted improvement in reflux symptoms in the week that she has been off of aspirin prior to today's EGD. Discussed the importance of cutting back on portions especially evening meal to decrease volume and also hopefully help out with weight loss to benefit reflux symptoms. Lastly, she was taking her second dose of omeprazole around 1:00 p.m. She was advised to take it later in the day as she was having significant nighttime reflux symptoms. She was told that she could also try Pepto-Bismol considering that there may be a component of bile reflux. I thank you for the referral of this pleasant lady. Job ID: [id number] DocumentID: [id number] Dictated Date: 11/12/2018 09:35:15 Insurance Claims Adjuster Date: 11/12/2018 14:41:47 Dictated By: VICKY NICOLAS MD MTDD
== END 2018-11-12 09:05 | disposition home or self-care (01) ==
LOC: ENDO 06:52
PROVIDERS: ATTEND Internal Medicine
DX: K21.0 Gastro-esophageal reflux disease with esophagitis (principal); K44.9 Diaphragmatic hernia without obstruction or gangrene; K22.10 Ulcer of esophagus without bleeding; K29.50 Unspecified chronic gastritis without bleeding; I10 Essential (primary) hypertension; E78.2 Mixed hyperlipidemia; E03.9 Hypothyroidism, unspecified; M79.7 Fibromyalgia; Z79.899 Other long term (current) drug therapy

== ENCOUNTER → 2019-06-08 | Outpatient (CLI) | payer MEDICARE, OTHER ==
--- NOTE | 2019-06-09 17:58 | Diagnostic Imaging Report ---
EXAMINATION: Digital mammogram bilateral screening. The current study was also evaluated with a Computer Aided Detection (CAD) system. 3-D tomosynthesis was also performed and reviewed. INDICATION: Screening. This study was compared to the prior exams of 01/08/2018 and 12/23/2016. At this time, there are no current complaints. FINDINGS: The fibroglandular tissue in both breasts is heterogeneously dense. This does limit the sensitivity of this exam. Overall, there does not appear to have been any significant change when compared to the prior study. No primary or secondary sign of malignancy is noted. 3D tomographic images fail to show any sign of malignancy. IMPRESSION: There is no radiographic evidence for malignancy. ACR BI-RADS Category 1: Negative. Result letter will be mailed to the patient. Note: At least 10% of breast cancer is not imaged by mammography. Dictated by: Dictated on workstation # [id number]
== END ==
LOC: RAD 10:18
PROVIDERS: ATTEND Family Medicine
DX: Z12.31 Encounter for screening mammogram for malignant neoplasm of breast (principal)
CPT/HCPCS: 77067

== ENCOUNTER → 2020-01-19 | Outpatient (CLI) | payer MEDICARE, OTHER ==
[~2020-01-19] MED LIST changes: -ACET-2469 PO; +ACET-2715 PO
--- NOTE | 2020-01-19 20:15 | Diagnostic Imaging Report ---
INDICATION: Elevated parathyroid hormone, hypercalcemia. TECHNIQUE: 21.0 mCi technetium 99m sestamibi administered intravenously. Imaging performed over the neck at 20 minutes as well as [address] injection[address] Limited [address] imaging was utilized for localization purposes. CORRELATION STUDY: None. FINDINGS: There is normal salivary gland and nasal uptake. There is faint uptake about both lobes of the thyroid gland on initial image. There is progressive washout present. There is no persistent area of abnormal nodular radiotracer accumulation on the delayed images. IMPRESSION: Negative appearing sestamibi scan. Dictated by: Dictated on workstation # [id number]
== END ==
LOC: CARD 09:21
PROVIDERS: ATTEND Family Medicine
DX: R79.89 Other specified abnormal findings of blood chemistry (principal)
CPT/HCPCS: 78072

== ENCOUNTER → 2020-06-04 | Outpatient (CLI) | payer MEDICARE, OTHER ==
[~2020-06-04] MED LIST changes: -ACET-2715 PO; +ACET-3075 PO
--- NOTE | 2020-06-04 08:47 | Diagnostic Imaging Report ---
PROCEDURE: MRI left joint lower extremity without contrast. TECHNIQUE: Multiplanar, multisequence non contrast-enhanced MRI of the left lower extremity was accomplished. INDICATION: Ankle pain. No known injury. COMPARISON: There are no prior studies available for comparison. FINDINGS: There is no abnormal signal arising from the osseous structures to indicate bone edema or a fracture. There is a minute 3 mm area of increased signal in the subarticular region of the anterolateral aspect of the distal tibia. This may represent a small osteochondral injury. The talar dome is smooth and there is no sign of avascular necrosis or osteochondritis dissecans. The major ligaments and tendons are intact; however, there is mild edema/inflammation of the soft tissues about the ankle joint. There is also a small amount of fluid within the ankle joint itself. IMPRESSION: 1. There is a minute osteochondral injury along the anterolateral aspect of the distal tibia. There is no abnormal signal arising from the osseous structures to indicate bone edema related to a fracture. There is no sign of osteochondritis dissecans or avascular necrosis of the talus either. 2. The major ligaments and tendons are intact. 3. There is mild edema/inflammation of the soft tissues about the ankle joint. Dictated by: Dictated on workstation # [id number]
== END ==
LOC: RAD 08:00
PROVIDERS: ATTEND Podiatrist Foot & Ankle Surgery
DX: M76.62 Achilles tendinitis, left leg (principal)
CPT/HCPCS: 73721

== ENCOUNTER → 2020-06-22 | Outpatient (CLI) | payer MEDICARE, OTHER ==
--- NOTE | 2020-06-22 11:58 | Diagnostic Imaging Report ---
INDICATION: Routine screening. COMPARISON is made with prior mammograms 06/08/2019 and 01/08/2018. 2-D and 3-D bilateral screening mammography was performed with CAD. Both breasts remain heterogeneously dense, limiting the sensitivity of mammography. There are benign calcifications scattered throughout both breasts. Nodular densities noted left breast are stable. No new mass or malignant appearing microcalcifications are seen. Axillae are unremarkable. IMPRESSION: BI-RADS Category 2. No mammographic features suspicious for malignancy are identified. ACR BI-RADS Category 2: Benign findings. Result letter will be mailed to the patient. Note: At least 10% of breast cancer is not imaged by mammography. Dictated by: Dictated on workstation # [id number]
== END ==
LOC: RAD 10:38
PROVIDERS: ATTEND Family Medicine
DX: Z12.31 Encounter for screening mammogram for malignant neoplasm of breast (principal)
CPT/HCPCS: 77063; 77067

== ENCOUNTER → 2020-11-07 | Outpatient (CLI) | payer MEDICARE, OTHER ==
[~2020-11-07] MED LIST changes: -LISI40TA PO; +LISI40TA9 PO
--- NOTE | 2020-11-07 15:06 | Diagnostic Imaging Report ---
PROCEDURE: US left lower extremity venous. TECHNIQUE: Multiple real-time grayscale images were obtained over the left lower extremity in various projections. Additional duplex Doppler and color Doppler images were also obtained. INDICATION: Leg pain swelling Followup deep venous thrombosis. Spectral color-flow imaging of the deep venous system was performed. There are no prior studies available for comparison On this exam there is generally good blood flow and compressibility throughout the deep venous system of the left lower extremity. There is no sign of a deep venous thrombosis. IMPRESSION: 1. There is no evidence for deep venous thrombosis. 2. If there are previous exams available for comparison they would be helpful. Dictated by: Dictated on workstation # [id number]
== END ==
LOC: RAD 14:07
PROVIDERS: ATTEND Family Medicine
DX: I82.402 Acute embolism and thrombosis of unspecified deep veins of left lower extremity (principal)

== ENCOUNTER → 2021-09-30 | Outpatient (CLI) | payer MEDICARE, OTHER ==
--- NOTE | 2021-09-30 12:24 | Diagnostic Imaging Report ---
INDICATION: Routine screening. Comparison is made with prior mammogram from 06/22/2020 and 06/08/2019. 2-D and 3-D bilateral screening mammography was performed with CAD. Both breasts are heterogeneously dense, limiting the sensitivity of mammography. There are benign calcifications scattered throughout both breasts. Benign nodules in the outer left breast are stable. No spiculated mass or malignant-appearing microcalcifications are seen. Axillae are unremarkable. IMPRESSION: BI-RADS Category 2 No mammographic features suspicious for malignancy are identified. ACR BI-RADS Category 2: Benign findings. Result letter will be mailed to the patient. Note: At least 10% of breast cancer is not imaged by mammography. Dictated by: Dictated on workstation # [id number]
== END ==
LOC: RAD 09:56
PROVIDERS: ATTEND Family Medicine
DX: Z12.31 Encounter for screening mammogram for malignant neoplasm of breast (principal)
CPT/HCPCS: 77063; 77067

== ENCOUNTER → 2021-12-23 | Outpatient (CLI) | payer MEDICARE, OTHER ==
--- NOTE | 2021-12-23 16:34 | Diagnostic Imaging Report ---
Indication: Hypercalcemia. Patient was administered 20.2 mCi technetium 99m sestamibi intravenously and imaging over the thyroid bed and upper chest was performed at 20 minutes and 2 hours. In addition, SPECT imaging was performed. There is normal washout of activity from the thyroid bed. No focus of abnormal tracer accumulation is seen to suggest parathyroid adenoma. No abnormal mediastinal uptake is identified. IMPRESSION: Normal parathyroid scan. Dictated by: Dictated on workstation # [id number]
== END ==
LOC: CARD 12:30
PROVIDERS: ATTEND Family Medicine
DX: E83.52 Hypercalcemia (principal); E34.9 Endocrine disorder, unspecified
CPT/HCPCS: 78072; A9500

== ENCOUNTER → 2021-12-30 | Outpatient (CLI) | payer MEDICARE, OTHER ==
--- NOTE | 2021-12-30 13:11 | Diagnostic Imaging Report ---
PROCEDURE: US Renal Bilateral. TECHNIQUE: Multiple Real-time grayscale images were obtained over the kidneys in various projections bilaterally. INDICATION: Hypercalcemia. FINDINGS: The right kidney measures 10 x 5.0 x 4.6 cm and contains several cystic regions including an approximately 3.3 x 3.6 cm possible septated cyst in the medial aspect of the upper pole of the left kidney. There is no evidence of hydronephrosis. The left kidney measures 10 x 4.1 x 4.6 cm and is otherwise unremarkable without hydronephrosis. There is no perinephric fluid collection. There does appear to be mild diffuse cortical thinning of both kidneys. Bilateral ureteric jets were confirmed. IMPRESSION: Mild cortical thinning with multiple cysts in the right kidney including an approximately 3.6 cm septated nodule which should be further evaluated on ultrasound followup in 3-4 months to document stability. Dictated by: Dictated on workstation # [id number]
== END ==
LOC: RAD 12:30
PROVIDERS: ATTEND Family Medicine
DX: N28.1 Cyst of kidney, acquired (principal); E83.52 Hypercalcemia; N28.89 Other specified disorders of kidney and ureter
CPT/HCPCS: 76770

== ENCOUNTER → 2022-10-01 | Outpatient (CLI) | payer MEDICARE, OTHER ==
--- NOTE | 2022-10-01 14:13 | Diagnostic Imaging Report ---
Indication: Routine screening. Comparison is made with prior mammogram from 09/30/2021 and 06/22/2020. 2-D and 3-D bilateral screening mammography was performed with CAD. CAD is utilized. The current study was also evaluated with a Computer Aided Detection (CAD) system. Both breasts are heterogeneously dense, limiting the sensitivity of mammography. There are numerous benign calcifications scattered throughout both breasts. The parenchymal pattern is stable. No new mass or malignant-appearing microcalcifications are seen. Axillae are unremarkable. IMPRESSION: BI-RADS Category 2 No mammographic features suspicious for malignancy are identified. ACR BI-RADS Category 2: Benign findings. Result letter will be mailed to the patient. Note: At least 10% of breast cancer is not imaged by mammography. Dictated by: Dictated on workstation # [id number]
== END ==
LOC: RAD 10:20
PROVIDERS: ATTEND Family Medicine
DX: Z12.31 Encounter for screening mammogram for malignant neoplasm of breast (principal)
CPT/HCPCS: 77063; 77067

== ENCOUNTER → 2022-10-13 | Outpatient (CLI) | payer MEDICARE, OTHER ==
--- NOTE | 2022-10-13 11:02 | Diagnostic Imaging Report ---
PROCEDURE: US Renal Bilateral. TECHNIQUE: Multiple Real-time grayscale images were obtained over the kidneys in various projections bilaterally. INDICATION: Right renal cyst. FINDINGS: The right kidney measures 9.5 x 5.1 x 5.7 cm. The left kidney measures 10.4 x 4.2 x 5.8 cm. There is a cyst on the right kidney measuring 3.6 x 2.0 x 2.1 cm. There is a 1.3 cm area of increased echogenicity in the cortex of the left kidney that is likely an angiomyolipoma. The urinary bladder appears normal. Both ureteral jets are seen. IMPRESSION: Small right renal cyst has no concerning features that warrant followup. 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 Dictated by: Dictated on workstation # [id number]
== END ==
LOC: RAD 09:03
PROVIDERS: ATTEND Family Medicine
DX: N28.1 Cyst of kidney, acquired (principal)
CPT/HCPCS: 76770

== ENCOUNTER → 2022-10-22 | Outpatient (CLI) | payer MEDICARE, OTHER | END | disposition home or self-care (01) | LOC: PREOP 06:04 | PROVIDERS: ATTEND Internal Medicine | DX: Z01.818 Encounter for other preprocedural examination (principal) ==

== ENCOUNTER 2022-10-31 08:36 | Day surgery (SDC) | payer MEDICARE, OTHER ==
--- NOTE | 2022-10-20 17:30 | HISTORY AND PHYSICAL ---
DATE OF SERVICE: 10/31/2022 SCREENING COLONOSCOPY AND DIAGNOSTIC ESOPHAGOGASTRODUODENOSCOPY HISTORY OF PRESENT ILLNESS: The patient is a 66-year-old white female now referred by Dr. Quispe for screening colonoscopy as well as diagnostic EGD. She reports history of epigastric discomfort, burning in nature, but she still has symptoms despite b.i.d. omeprazole, requiring p.r.n. antacid therapy. She reports a recent diagnosis of hyperparathyroidism, for which she is seeing an gold blower in [place]. She has had a sonogram, but does not know if it showed any abnormalities. She denies any ongoing issues with constipation and has noted no change in bowel habit. No bright red blood per rectum or melena. She denies dysphagia. PAST MEDICAL HISTORY: Significant for longstanding hypertension, mixed hyperlipidemia, hypothyroidism and fibromyalgia. She has no reported history of coronary artery disease and she denies dysphagia. PAST SURGICAL HISTORY: She reports no past surgeries. SOCIAL HISTORY: She is , employed with no past smoking or drinking history. She has one adult child. REVIEW OF SYSTEMS: CONSTITUTIONAL: Denies night sweats, chills, fever, or change in weight. PULMONARY: Denies cough, wheezing or shortness of breath. GASTROINTESTINAL: As noted in the HPI. CARDIOVASCULAR: Denies orthopnea, PND, pedal edema or syncope. PHYSICAL EXAMINATION: GENERAL: Reveals a white female who appeared to be in no acute distress. VITAL SIGNS: Blood pressure 120/70, weight 226.6 pounds. HEENT: Unremarkable. Sclerae nonicteric. CHEST: Clear to auscultation. CARDIOVASCULAR: Reveals a regular rate and rhythm without murmur, S3, or S4. ABDOMEN: Soft, supple. Mild epigastric pain to palpation is noted without rebound or guarding. No mass or organomegaly noted. Bowel sounds positive, no bruits appreciated. EXTREMITIES: No cyanosis, clubbing or edema. ASSESSMENT: The patient is being set up for diagnostic EGD due to refractory reflux disease, which may be aggravated by underlying hyperparathyroidism. We did discuss the association with upper tract GI ulceration and hyperparathyroidism. She will be set up for screening colonoscopy as well deemed to be of average risk because she is not aware of any family history for colon cancer. Prep instructions were given and questions were answered. I thank you for referral of this pleasant lady. Job ID: [id number] DocumentID: [id number] Dictated Date: 10/20/2022 16:40:56 Tie Man Date: 10/20/2022 17:28:00 Dictated By: VICKY NICOLAS MD
[~2022-10-31] VITALS: Ht 170.2 cm; Wt 103.0 kg
--- NOTE | 2022-10-31 08:26 | Pre-Op Note & Conscious Sedat ---
Pre-Operative Progress Note Date H&P Reviewed: Oct 31, 2022 Time H&P Reviewed: 08:25 History & Physical: H&P Reviewed, Patient Examed, No changes noted Pre-Op Diagnosis: screening plus epigastric pain Conscious Sedation Pre-Proced ASA Score 2 For ASA 3 and 4: Consider anesthesia and medical clearance. Also, for patients with a history of failed moderate sedation consider anesthesia. Airway Lungs Heart ASA score ASA 1: a normal healthy patient ASA 2: a patient with a mild systemic disease (mid diabetes, controlled hypertension, obesity ASA 3: a patient with a severe systemic disease that limits activity (angina, COPD, prior Myocardial infarction) ASA 4: a patient with an incapacitating disease that is a constant threat to life (CHF, renal failure) ASA 5: a moribund patient not expected to survive 24 hrs. (ruptured aneurysm) ASA 6: a declared brain- patient whose organs are being harvested. For emergent operations, add the letter E after the classification Mallampati Classification Grade 2 Sedation Plan Analgesia, Amnesia, Plan communicated to team members, Discussed options with patient/fam, Discussed risks with patient/fam The patient is an appropriate candidate to undergo the planned procedure, sedation, and anesthesia. The patient immediately re-assessed prior to indication. VICKY NICOLAS MD Oct 31, 2022 08:26
[~2022-10-31 08:36] MED LIST changes: +FAMO40TA6 PO; +MELA5CAP PO
[2022-10-31] MEDS ORDERED: LACTATED RINGERS 1,000 ML IV STA (08:37)
[2022-10-31] MEDS ORDERED: HURRICAINE EXT TUBE (BENZOCAINE) XX PRN (08:45)
[2022-10-31 08:51] VITALS: BP 140/79
[2022-10-31] MEDS ORDERED: PROPOFOL INJECTION 50 ML IV ONE ×2 (08:57→09:17)
[2022-10-31 09:35] VITALS: BP 88/51
--- NOTE | 2022-10-31 09:37 | Anesthesia-General Post-Op ---
MAC Patient Condition Mental Status/LOC: Same as Preop Cardiovascular: Satisfactory Nausea/Vomiting: Absent Respiratory: Satisfactory Pain: Controlled Complications: Absent Post Op Complications Complications None Follow Up Care/Instructions Patient Instructions None needed. Anesthesiology Discharge Order Discharge Order Patient is doing well, no complaints, stable vital signs, no apparent adverse anesthesia problems. No complications reported per nursing. EDMAR ZALDIVAR CRNA Oct 31, 2022 09:37
[2022-10-31 09:40] VITALS: BP 88/53
[2022-10-31 09:45] VITALS: BP 93/54
--- NOTE | 2022-10-31 09:48 | Progress Note-Post Operative ---
Post-Procedure Note Physician (s)/Creative Manager (s) Physician VICKY NICOLAS MD Pre-Procedure Diagnosis Pre-Procedure Diagnosis: screening plus epigastric pain Post-Procedure Diagnosis Post-operative diagnosis: The endoscope was inserted into the oral cavity and under direct visualization the esophagus is intubated. The discussed passed down the esophagus to stomach and the second portion of the duodenum. A careful inspection was made as the endoscope was withdrawn. Findings: The posterior pharynx epiglottis true and false vocal folds and arytenoid aperture were unremarkable on visual inspection. The proximal mid and distal esophagus are unremarkable except for the fact that the Z-line is approximately placed at 30 cm from the incisors and the orifice secondary to a large at least 5 cm hiatal hernia with the cardia being present above the level of the diaphragm. There was no evidence for erosive esophagitis or evidence to suggest Urias's change. A biopsy from the Z-line was obtained. The cardia and fundus were otherwise unremarkable. There is some linear erythema noted in the antrum a biopsy was obtained and submitted for Helicobacter evaluation and histopathology. No ulceration was noted. The pylorus pyloric channel duodenal bulb and second portion of the duodenum were unremarkable. Assessment: 1. A large least 5 cm hiatal hernia is present with the cardia being present above the level of the diaphragm. There is no evidence for erosive esophagitis or Urias's change on gross inspection. 2. Mild linear antral gastritis noted biopsy was obtained and submitted for Helicobacter and histopathology. We then proceeded with colonoscopy. Prior to undergoing colonoscopy digital rectal evaluation was performed. Anal suture tone was normal and the perianal reflexes intact. No abnormalities noted on digital inspection anal canal or distal rectal vault. The colonoscope was then inserted into the rectum and under direct physician advanced the cecum. The cecum was identified by indication of the ileocecalvalve and cecal strap. Photographic dictation obtained. A careful inspection was made as the colonoscope withdrawn. Quality the prep was good. Findings: There were no evidence for internal or external hemorrhoids and the rectum was unremarkable. Present in the distal sigmoid was a diminutive 4 mm sessile hyperplastic appearing polyp was biopsied and ablated and submitted for histopathology with no blood loss with hot forceps. The remainder the sigmoid colon descending colon splenic flexure transverse colon hepatic flexure ascending colon and cecum were unremarkable. Assessment: 1 diminutive polyp was removed from the distal sigmoid colon via hot forceps with no subsequent blood loss. As long as there continues to be no family history for colon cancer would not advocate future screening colonoscopy considering age. I thank you for referral this pleasant lady. CC: Dr. Muriel Quispe DO. VICKY NICOLAS MD Oct 31, 2022 09:48
[2022-10-31 09:57] VITALS: BP 107/74
== END 2022-10-31 10:24 | disposition home or self-care (01) ==
LOC: ENDO 08:36
PROVIDERS: ATTEND Internal Medicine
DX: Z12.11 Encounter for screening for malignant neoplasm of colon (principal); K63.5 Polyp of colon; K44.9 Diaphragmatic hernia without obstruction or gangrene; K29.70 Gastritis, unspecified, without bleeding; E21.3 Hyperparathyroidism, unspecified; K21.00 Gastro-esophageal reflux disease with esophagitis, without bleeding; E66.9 Obesity, unspecified; Z68.35 Body mass index [BMI] 35.0-35.9, adult; Z79.899 Other long term (current) drug therapy
CPT/HCPCS: 88305

== ENCOUNTER → 2023-03-31 | Outpatient (CLI) | payer MEDICARE, OTHER ==
--- NOTE | 2023-03-31 13:07 | Diagnostic Imaging Report ---
INDICATION: Postmenopausal state, screening for osteoporosis. COMPARISON: None available. FINDINGS: AP Spine L1-L4: [BMD (g/cm2): 1.062] [T-Score: -1.2] [Z-Score: -0.7] [BMD Previous: NA] [BMD % Change: NA] LT Hip Neck: [BMD (g/cm2): 0.798] [T-Score: -1.7] [Z-Score: -0.8] LT Hip Total: [BMD (g/cm2):0.830] [T-Score:-1.4] [Z-Score: -0.8] [BMD Previous: NA] [BMD % Change: NA] RT Hip Neck: [BMD (g/cm2):0.775] [T-Score:-1.9] [Z-Score:-1.0] RT Hip Total: [BMD (g/cm2):0.853] [T-score:-1.2] [Z-Score:-0.6] [BMD Previous:NA] [BMD % Change:NA] *Indicates significant change from prior examination based on 95% confidence level. World Health Organization criteria for BMD interpretation classify patients as Normal (T-score at or above -1.0), Osteopenic (T-score between -1.0 and -2.5) or Osteoporotic (T-score at or below -2.5). LIMITATIONS AND MODIFICATION: [place] left curvature of the lumbar spine with associated significant degenerative changes. FRACTURE RISK (FRAX SCORE): The ten year probability of (%): Major Osteoporotic Fracture: [10.5] Hip Fracture: [1.8] IMPRESSION: 1. Osteopenia (Low bone mass). 2. Baseline examination. 3. See below National Osteoporosis Foundation guidelines on when to potentially initiate pharmacologic therapy. Based on the National Osteoporosis Foundation Guidelines, pharmacologic treatment should be initiated in any of the following, unless clinical conditions suggest otherwise: * Any patient with prior fragility fracture of the hip or vertebrae. A spine fracture indicates 5X risk for subsequent spine fracture and 2X risk for subsequent hip fracture. * Osteoporosis (T-score <-2.5). * Postmenopausal women and men age 50 and older with low bone mass/osteopenia (T-score between -1.0 and -2.5) by DXA and 10-year major osteoporotic fracture greater than 20% or a 10-year probability of hip fracture greater than 3%. These fracture risks are supplied above in the FRAX score, if applicable. * Clinician judgement and/or patient preferences may indicate treatment for people with 10-year fracture probabilities above or below these levels. Dictated by: Dictated on workstation # [id number]
== END ==
LOC: RAD 09:25
PROVIDERS: ATTEND Family Medicine
DX: Z13.820 Encounter for screening for osteoporosis (principal); E21.3 Hyperparathyroidism, unspecified; M85.80 Other specified disorders of bone density and structure, unspecified site; Z78.0 Asymptomatic menopausal state
CPT/HCPCS: 77080